=== PATIENT | female | born 1940 | race Caucasian/White ===

== ENCOUNTER 2016-07-14 17:20 | Emergency (ER) | payer MEDICARE, MEDICAID ==
[~2016-07-14] VITALS: Ht 149.9 cm; Wt 77.3 kg
[~2016-07-14 17:20] MED LIST: ARMO250T4 PO; CALC-762 PO; CARV6.252 PO; CHOL10008 PO; DOCU250C2 PO; FLUO40CA PO; FURO40TA4 PO; INSU100I SUBQ; INSU100V7 SUBQ; LOTE5DRO3 LEFT_EYE; NITR50CA4 PO; OMEP20CA11 PO; OXYB10TA PO; PRAV40TA PO; RAMI2.5C26 PO; VENL150C PO; WARF5TAB7 PO; ZYL100 PO
[2016-07-14 17:25] VITALS: BP 109/71; PULSE 83; RESP 16; O2SAT 88
[2016-07-14 17:57] LABS: BASOPHILS % (AUTO) 0.1 % (0-3); EOSINOPHILS % (AUTO) 1.6 % (0-5); MONOCYTES % (AUTO) 5.6 % (4-12); Mean Corpuscular Hemoglobin 30.8 pg (27.0-35.0); Mean Corpuscular Volume 92.3 fL (81-100); NEUTROPHILS % (AUTO) 79.6 % (40-74); Platelet Count 181 bil/L (150-400)
[2016-07-14 18:10] LABS: Magnesium 1.6 mg/dL (1.6-2.6)
--- NOTE | 2016-07-14 18:12 | ED.REPORT ---
HPI-Abd Pain F 40 and Over Date of Service Jul 14, 2016 ED Provider: Thompson,Ed MD History of Present Illness: 75-year-old female here for abdominal pain. She has had abdominal pain intermittently for 3 years. It was worse today. An episode of diarrhea while here. He was extremely smelly. He has been nauseous as well. No vomiting. She states she has a UTI she can feel it, otherwise was not specific about that. No fever. No recent antibiotics. takes daily stool softeners. No hx bowel issues per pt but it was found she was admitted for similar symptoms 02/2015. Nursing Notes Stated Complaint: ABDOMINAL PAIN Chief Complaint: Female Abdominal Pain Nursing Notes Reviewed: Yes Allergies: Coded Allergies: Penicillins (Verified Allergy, Unknown, 02/08/15) Sulfa (Sulfonamide Antibiotics) (Verified Allergy, Unknown, 02/08/15) TAPE (Verified Allergy, Unknown, Fragile skin, 02/08/15) azithromycin (Verified Allergy, Unknown, 02/08/15) meperidine (Verified Allergy, Unknown, 02/08/15) meperidine HCl (Verified Allergy, Unknown, 02/08/15) Scheduled Allopurinol (Allopurinol) 100 Mg Tablet 100 MG PO QAM Armodafinil (Nuvigil) 250 Mg Tablet 250 MG PO DAILY Calcium Carbonate/Vitamin D3 (Calcium 1,000 + D3 Caplet) 1 Each Tablet 1 EACH PO QAM Carvedilol (Carvedilol) 6.25 Mg Tablet 6.25 MG PO BID Cholecalciferol (Vitamin D3) (Vitamin D3) 1,000 Unit Tab.chew 1,000 UNIT PO QAM Ciprofloxacin (Cipro) 500 Mg Tablet 500 MG PO BID Docusate Sodium (Docusate Sodium) 250 Mg Capsule 250 MG PO HS Fluoxetine (Fluoxetine) 40 Mg Capsule 40 MG PO DAILY Furosemide (Furosemide) 40 Mg Tablet 10 MG PO QAM Insulin Aspart (NovoLOG U-100 Pen) 100 Unit/Ml Insuln.pen SUBQ TIDAC use per sliding scale Insulin Glargine (Lantus U100 Insulin Vial) 100 Unit/Ml Vial 36 UNIT SUBQ HS Loteprednol Etabonate (Lotemax) 5 Ml Drops.susp 1 DROP LEFT_EYE TID Metronidazole (Metronidazole) 500 Mg Tablet 500 MG PO TID Nitrofurantoin Macrocrystal (Macrodantin) 50 Mg Capsule 50 MG PO HS Omeprazole (Omeprazole) 20 Mg Capsule.dr 20 MG PO QAM Oxybutynin Chloride ER (Oxybutynin Chloride ER) 10 Mg Tab.er.24 10 MG PO DAILY Pravastatin (Pravastatin) 40 Mg Tablet 40 MG PO QAM Ramipril (Altace) 2.5 Mg Capsule 2.5 MG PO QAM Venlafaxine ER (Effexor XR) 150 Mg Cap.er.24h 150 MG PO QAM Warfarin Sodium (Warfarin Sodium) 5 Mg Tablet 5 MG PO Mon, Wed, Fri, Sat Warfarin Sodium (Warfarin Sodium) 5 Mg Tablet 7.5 MG PO Fri, Fri, General Time Seen by MD: 18:11 Chief Complaint Abdominal pain, Diarrhea mild, Nausea Hx Obtained From: Patient Arrived By: Walk-in Sudden in Onset?: No Progression since Onset: Constant Location: : Abdomen lower Severity: Current: Moderate Severity: Maximum: Severe Associated with: Reports: Diarrhea, Nausea Pertinent Negative: Pt denies other symptoms Past Medical History Past Medical History Notes: PCP: Dr. Rebolledo Past Medical History History of gastric AVM seen on EGD 02/02/13 History of ascending colonic sessile serrated polyp, benign pathology Diabetes mellitus, type 2, insulin using CAD status post stent placement Chronic gastritis CVA with residual left sided weakness Atrial fibrillation on coumadin Hypertension Narcolepsy [place] COPD Depression Anxiety Myocardial infarction Admitted in january with small and large bowel colitis, ecoli UTI. Past Surgical History Hiatal hernia repair Cholecystectomy Hysterectomy Possible appendectomy (patient unsure) Family History Noncontributory Smoking History Former Smoker Social History Alcohol Use: "Social" Drug Use: Denies drug use Other Social History: Lives alone, Local resident Ambulatory Status Independent Review of Systems Basic Review of Systems Eyes: Vision NL ENT: Hearing NL Neurologic: NL mental status, No weakness, No numbness Psychiatric: Normal thought content Constitutional: Denies: Fever Cardiovascular: Denies: Chest pain GI: Reports: Abdominal pain, Anorexia, Diarrhea, Nausea Female: Reports: Dysuria Musculoskeletal: Denies: Back pain Complete sys rev & neg: except as marked. Physical Exam Vital Signs Vital Signs (First) Date Time Temp Pulse Resp B/P Pulse Ox O2 Delivery O2 Flow Rate FiO2 07/14/16 17:25 36.6 83 16 109/71 88 Room Air 07/14/16 19:37 1 Head / Eyes: Atraumatic, Normocephalic, PERRL ENT: Mucous membranes moist, Conjunctiva normal Neck: Supple Skin: Warm, Dry, No cyanosis Neurologic: Alert, Oriented, Nonfocal Psychiatric: Mood/affect normal, Behavior normal, Normal thought content Respiratory / Chest: Atraumatic, Breath sounds = bilat Wheezing / Retractions: Positive: Wheezing mild Cardiovascular: Heart rate NL, Regular rhythm, Heart sounds NL Abdomen: Atraumatic, No guarding, No rebound, BS normoactive, No distention Tenderness/Guarding/Rebound: Positive: Tender LLQ... (Moderate), Tender RLQ... (Moderate) Skin: Atraumatic, Color NL, No rash Interpretation & Diagnostics Interpretation & Diagnostics: 1. Diffuse circumferential colonic wall thickening involving the distal transverse colon, splenic flexure, descending and sigmoid colon, consistent with colitis. Differential diagnoses include infectious etiology, inflammatory bowel disease, and ischemia. Recommend clinical correlation. 2. Multiple renal cysts bilaterally. 3. Stable left adrenal nodule. Dictated by: Martha Welch M.D. on 07/14/2016 at 19:40 Approved by: Martha Welch M.D. on 07/14/2016 at 19:45 Lab Results Interpretation Result Diagram: 07/14/16 1752 07/14/16 1752 Test 07/14/16 17:52 07/14/16 20:25 White Blood Count 13.5th/mm3 (3.8-10.1) Red Blood Count 4.52mil/mm3 (3.90-5.20) Hemoglobin 13.9g/dL (12.0-15.6) Hematocrit 41.7% (35.0-46.0) Mean Corpuscular Volume 92.3fL (81-100) Mean Corpuscular Hemoglobin 30.8pg (27.0-35.0) Mean Corpuscular Hemoglobin Concent 33.3% (32.0-37.0) Red Cell Distribution Width 13.1% (12.3-15.4) Platelet Count 181bil/L (150-400) Neutrophils (%) (Auto) 79.6% (40-74) Lymphocytes (%) (Auto) 12.6% (14-46) Monocytes (%) (Auto) 5.6% (4-12) Eosinophils (%) (Auto) 1.6% (0-5) Basophils (%) (Auto) 0.1% (0-3) Prothrombin Time 22.0sec (8.1-12.5) Prothromb Time International Ratio 2.03ratio Sodium Level 133mEq/L (134-144) Potassium Level 4.8mEq/L (3.5-5.2) Chloride Level 94mEq/L (97-108) Carbon Dioxide Level 25mmol/L (18-29) Blood Urea Nitrogen 21mg/dL (8-27) Creatinine 1.03mg/dL (0.57-1.00) Estimat Glomerular Filtration Rate 75mL/min (>59) Glucose Level 217mg/dL (60-99) Calcium Level 8.9mg/dL (8.5-10.1) Magnesium Level 1.6mg/dL (1.6-2.6) Total Bilirubin 0.4mg/dL (0.0-1.2) Aspartate Amino Transf (AST/SGOT) 42U/L (0-50) Alanine Aminotransferase (ALT/SGPT) 28U/L (0-32) Alkaline Phosphatase 172U/L (25-165) Total Protein 6.6g/dL (6.4-8.4) Albumin 3.9g/dL (3.4-5.0) Lipase 39U/L (13-60) Hold [place] Top Tube Received (Received) Urine Color Yellow (YELLOW) Urine Appearance Hazy (CLEAR,HAZY) Urine pH 6.0 (5.0-8.0) Urine Specific [place] 1.010 (1.003-1.035) Urine Protein Negativemg/dL (NEG,TRACE) Urine Glucose (UA) Negativemg/dL (NEGATIVE) Urine Ketones Negativemg/dL (NEGATIVE) Urine Occult Blood Negative (NEGATIVE) Urine Nitrite Positive (NEGATIVE) Urine Bilirubin Negative (NEGATIVE) Urine Urobilinogen Normalmg/dL (NORMAL) Urine Leukocyte Esterase Negative (NEGATIVE) Urine RBC 0-2/hpf (0-2) Urine WBC 0-5/hpf (0-5) Urine Epithelial Cells Occasional/hpf (NONE-MOD) Urine Crystals Amorphous urates (NONE Urine Bacteria Many/hpf (NONE-FEW) Urine Hyaline Casts None/lpf (NONE) Urine Granular Casts None seen (NONE SEEN) Urine Waxy Casts None seen (NONE SEEN) Urine Red Blood Cell Casts None seen (NONE SEEN) Urine White Blood Cell Casts None seen (NONE SEEN) Urine Mucus None seen (None Seen) Urine Trichomonas None seen (NONE SEEN) Urine Yeast None (NONE SEEN) Urinalysis Comment None Urine Culture Reflexed Indicated Re-Eval/Medical Decision Med Decision/Clinical Course Positive nitrates on urine, colitis founds on CAT scan. We will treat with metronidazole and Cipro for colitis and UTI follow-up in 1-[address] rebolledo. INR within normal limits, no adjustments on Coumadin needed. She will return if worse. Case ran by Dr. Pham agrees with discharge Source of Hx: Old records Counseled Regarding: Diagnosis, Lab results, Need for follow-up, When/why to return to ED Discharge & Departure Primary Impression: Urinary tract infection Urinary tract infection type: acute cystitis Hematuria presence: without hematuria Qualified Code: N30.00 - Acute cystitis without hematuria Additional Impression: Colitis, acute Disposition: Home Discharge Condition All VS Reviewed: Yes Condition: Stable Patient Instructions: Microscopic Colitis (ED), Urinary Tract Infection in Women (DC) Additional Instructions: Take ciprofloxacin and metronidazole for colitis and UTI. Follow-up with your doctor in 1-2 days. Return to emergency room if fevers, worsening pain, vomiting or worsening condition at all. Follow up if dizziness and lightheadedness is severe or you have any more falls. Drink lots of water and rest. You have stool cultures pending that will likely be back in 1-2 days, reviewed these with your doctor at your next appointment. You need to recheck your INR in the next few days as well your antibiotics interact with your Coumadin. You can do this with her PCP Referrals: Jorge A Rebolledo MD (PCP) EDSupervising Provider for APC: Faisal Pham MD copies to: Jorge A Rebolledo MD; Faisal Pham MD, Linnea K ARNP Jul 14, 2016 18:12
[2016-07-14] MEDS ORDERED: 0.9% Sodium Chloride 1,000 ML IV ONE (18:22)
[2016-07-14] MEDS ORDERED: Ondansetron 2 mg/mL 2 mL Inj IVPUSH ONE (18:25)
--- NOTE | 2016-07-14 18:55 | DRSVH ---
PROCEDURE: X-RAY CHEST ONE VIEW ([id number]) INDICATIONS: wheeze TECHNIQUE: One view of the chest was acquired. COMPARISON: [facility], CR, CHEST 1VW (PORTABLE), 12/20/2012, 1:21. [facility] al, CR, CHEST 2VW, 01/25/2013, 22:13. [facility], CR, CHEST 1VW (PORTABLE), 04/10/2013, 1 6:38. [facility], , XR CHEST 1VW (PORTABLE), 02/08/2015, 15:25. FINDINGS: Surgical changes and devices: There is a cardiac defibrillator in expected position. Lungs and pleura: Stable nodular densities in the right upper lung zone since 12/12/12. No pleural ef fusions or pneumothorax. Mediastinum: Mediastinal contours appear normal. Heart size is normal. Bones and chest wall: No suspicious bony lesions. Overlying soft tissues appear unremarkable. IMPRESSION: No acute cardiopulmonary disease. Dictated by: Martha Welch M.D. on 07/14/2016 at 18:53 Approved by: Martha Welch M.D. on 07/14/2016 at 18:55
[2016-07-14 19:37] VITALS: BP 91/48; PULSE 86; RESP 16; O2SAT 96
--- NOTE | 2016-07-14 19:40 | DRSVH ---
PROCEDURE: CT BRAIN WITHOUT CONTRAST ([id number]) INDICATIONS: head trauma TECHNIQUE: Noncontrast 4.5 mm thick angled axial sections acquired from the foramen magnum to the vertex, with c oronal reformats. COMPARISON: None. FINDINGS: Image quality: Excellent. CSF spaces: Basal cisterns are patent. No extra-axial fluid collections. The ventricles are symmet rivera in size and shape. Brain: No intracranial bleeds or masses. There is moderate cerebral volume loss for age, with resul tant ventricular and sulcal prominence. There are severe periventricular and deep white matter chron ic small vessel ischemic changes. There is intracranial internal carotid artery atherosclerosis. Skull and face: Calvarium and visualized facial bones appear intact, without suspicious lesions. Sinuses: Visualized sinuses and mastoids are clear. IMPRESSION: 1. No acute intracranial abnormalities. 2. Cerebral volume loss and chronic microvascular ischemic changes. Dictated by: Martha Welch M.D. on 07/14/2016 at 19:38 Approved by: Martha Welch M.D. on 07/14/2016 at 19:39
--- NOTE | 2016-07-14 19:46 | DRSVH ---
PROCEDURE: CT ABDOMEN AND PELVIS WITH CONTRAST ([id number]) INDICATIONS: lower abd pain TECHNIQUE: After the administration of intravenous contrast, 5 mm thick sections acquired from the diaphragm to the symphysis. 5 mm coronal and sagittal reformats were acquired. For radiation dose reduction, the following was used: automated exposure control, adjustment of mA and/or kV according to patient gio crum. COMPARISON: [facility], CT, CT ABD PELVIS W CON, 02/08/2015, 15:52. [facility], CT, CT ABD PELVIS W CON, 03/20/2015, 10:28. FINDINGS: Image quality: Excellent. ABDOMEN: Lung bases: Lung bases are clear. Heart size is normal. Note is made of left breast prosthesis. Solid organs: Liver and spleen are normal in size and enhancement. Gallbladder is surgically absent . Biliary system is non dilated. Pancreas enhances normally. There is a 1.9 cm left adrenal nodule unchanged compared to 03/20/2015. Kidneys demonstrate normal size and enhancement, without hydroneph rosis. Multiple renal cysts bilaterally are again noted. Peritoneum and bowel: There is diffuse circumferential colonic wall thickening involving the distal transverse colon, splenic flexure, descending and sigmoid colon consistent with colitis. Small bowel loops demonstrate normal wall thickness and caliber. There is a trace amount of free fluid. No free air. Nodes and vessels: No retroperitoneal or mesenteric adenopathy by size criteria. Aorta and inferior vena cava are normal in size. Mild atherosclerosis. Miscellaneous: No ventral hernias. PELVIS: Genitourinary: Bladder wall thickness is normal. Miscellaneous: No inguinal hernias or adenopathy. Bones: No suspicious bony lesions. No vertebral body compression fractures. Mild degenerative gallego ges noted in lumbar spine. IMPRESSION: 1. Diffuse circumferential colonic wall thickening involving the distal transverse colon, splenic fle xure, descending and sigmoid colon, consistent with colitis. Differential diagnoses include infectiou s etiology, inflammatory bowel disease, and ischemia. Recommend clinical correlation. 2. Multiple renal cysts bilaterally. 3. Stable left adrenal nodule. Dictated by: Martha Welch M.D. on 07/14/2016 at 19:40 Approved by: Martha Welch M.D. on 07/14/2016 at 19:45
[2016-07-14 20:29] LABS: INR 2.03 ratio
[2016-07-14 20:44] LABS: APPEARANCE,URINE HAZY (CLEAR,HAZY); COLOR,URINE YELLOW (YELLOW); OCCULT BLOOD,URINE NEGATIVE (NEGATIVE); UROBILINOGEN,URINE NORMAL (NORMAL)
[2016-07-14] MEDS ORDERED: METR500T19 PO (21:02)
[2016-07-14] MEDS ORDERED: CIPR-231 PO (21:03)
[2016-07-14 21:39] VITALS: BP 105/54; PULSE 86; RESP 16; O2SAT 96
[2016-07-16] MEDS ORDERED: DOXY100C43 PO (10:10)
== END 2016-07-14 21:50 | disposition home or self-care (01) ==
LOC: SED 17:20
DX: N30.00 Acute cystitis without hematuria (principal); B96.20 Unspecified Escherichia coli [E. coli] as the cause of diseases classified elsewhere; K52.9 Noninfective gastroenteritis and colitis, unspecified; I11.9 Hypertensive heart disease without heart failure; E11.59 Type 2 diabetes mellitus with other circulatory complications; I25.10 Atherosclerotic heart disease of native coronary artery without angina pectoris; I25.2 Old myocardial infarction; I69.354 Hemiplegia and hemiparesis following cerebral infarction affecting left non-dominant side; Z86.79 Personal history of other diseases of the circulatory system; Z79.4 Long term (current) use of insulin; Z79.01 Long term (current) use of anticoagulants; Z87.891 Personal history of nicotine dependence; Z88.0 Allergy status to penicillin; Z88.1 Allergy status to other antibiotic agents; Z88.2 Allergy status to sulfonamides; Z88.5 Allergy status to narcotic agent; Z88.8 Allergy status to other drugs, medicaments and biological substances
CPT/HCPCS: 70450; 71010; 74177; 80053; 81000; 83690; 83735; 85025; 85610; 87086; 87088; 87186; 87507; 96361; 96374; 99285; J2405; J7030; Q9967

== ENCOUNTER 2016-09-01 13:05 | Inpatient (IN) | payer MEDICARE, MEDICAID ==
[~2016-09-01] VITALS: Ht 149.9 cm; Wt 81.8 kg
[~2016-09-01 13:05] MED LIST changes: +CIPR-231 PO; +DOXY100C43 PO; +METR500T19 PO
[2016-09-01 13:06] VITALS: BP 95/48; PULSE 88; RESP 17; O2SAT 98
--- NOTE | 2016-09-01 13:21 | ED.REPORT ---
HPI-Extremity Problem Lower Date of Service Sep 01, 2016 ED Provider: Thompson,Ed MD History of Present Illness: started 2 days ago, right leg swelling and redness. ball is primary care. , no injury to right leg. nausea, no vomiting diabetic, lives by self at [facility]. Nursing Notes Stated Complaint: RT LEG SWELLING Chief Complaint: Extremity Trauma Nursing Notes Reviewed: Yes Allergies: Coded Allergies: Penicillins (Verified Allergy, Unknown, 09/01/16) Sulfa (Sulfonamide Antibiotics) (Verified Allergy, Unknown, 09/01/16) TAPE (Verified Allergy, Unknown, Fragile skin, 09/01/16) azithromycin (Verified Allergy, Unknown, 09/01/16) meperidine (Verified Allergy, Unknown, 09/01/16) meperidine HCl (Verified Allergy, Unknown, 09/01/16) Scheduled Allopurinol (Allopurinol) 100 Mg Tablet 100 MG PO QAM Armodafinil (Nuvigil) 250 Mg Tablet 250 MG PO DAILY Carvedilol (Carvedilol) 6.25 Mg Tablet 6.25 MG PO BID Docusate Sodium (Docusate Sodium) 250 Mg Capsule 250 MG PO HS Fluoxetine (Fluoxetine) 40 Mg Capsule 40 MG PO DAILY Furosemide (Furosemide) 40 Mg Tablet 10 MG PO QAM Insulin Aspart (NovoLOG U-100 Pen) 100 Unit/Ml Insuln.pen SUBQ TIDAC use per sliding scale Insulin Glargine (Lantus U100 Insulin Vial) 100 Unit/Ml Vial 36 UNIT SUBQ HS Loteprednol Etabonate (Lotemax) 5 Ml Drops.susp 1 DROP LEFT_EYE TID Nitrofurantoin Macrocrystal (Macrodantin) 50 Mg Capsule 50 MG PO HS Omeprazole (Omeprazole) 20 Mg Capsule.dr 20 MG PO QAM Oxybutynin Chloride ER (Oxybutynin Chloride ER) 10 Mg Tab.er.24 10 MG PO DAILY Pravastatin (Pravastatin) 40 Mg Tablet 40 MG PO QAM Venlafaxine ER (Effexor XR) 150 Mg Cap.er.24h 150 MG PO QAM Warfarin Sodium (Warfarin Sodium) 5 Mg Tablet 5 MG PO Mon, Wed, Fri, Sat Warfarin Sodium (Warfarin Sodium) 5 Mg Tablet 7.5 MG PO Sun, Tue, Th Scheduled PRN Doxycycline Monohyd (Doxycycline Monohyd) 100 Mg Capsule 100 MG PO BID PRN PRN UTI Miscellaneous Medications Varenicline Tartrate (Chantix) 1 Mg Tablet 1 MG PO General Time Seen by MD: 13:20 Chief Complaint Other (right leg erthyma and swelling) Hx Obtained From: Patient Onset Occurred: 2 days ago Symptom Duration: Since onset Past Medical History Past Medical History Notes: PCP: Dr. Cordero Past Medical History History of gastric AVM seen on EGD 02/02/13 History of ascending colonic sessile serrated polyp, benign pathology Diabetes mellitus, type 2, insulin using CAD status post stent placement Chronic gastritis CVA with residual left sided weakness Atrial fibrillation on coumadin Hypertension Narcolepsy [place] COPD Depression Anxiety Myocardial infarction Admitted in january with small and large bowel colitis, ecoli UTI. Past Surgical History Hiatal hernia repair Cholecystectomy Hysterectomy Possible appendectomy (patient unsure) Family History Noncontributory Smoking History Former Smoker Social History Alcohol Use: "Social" Drug Use: Denies drug use Other Social History: Lives alone, Local resident Occupation lives at [facility] 09/01/2016 Ambulatory Status Independent Review of Systems Basic Review of Systems Eyes: Vision NL, No discharge Cardiovascular: No chest pain, No dyspnea on exertion, No orthopnea, No parox noct dyspnea, No palpitations Allergy / Immune: No allergy Physical Exam Initial Vital Signs Vital Signs (First) Date Time Temp Pulse Resp B/P Pulse Ox O2 Delivery O2 Flow Rate FiO2 09/01/16 13:06 36.8 88 17 95/48 98 Room Air 09/01/16 14:40 2 Initial VS: Reviewed, Vital signs normal General/Constitutional: Well-developed, Well-nourished Head / Eyes: Atraumatic, Normocephalic, PERRL ENT: Mucous membranes moist, Conjunctiva normal, No scleral icterus Neck: Supple, Non-tender, Full range of motion Respiratory: Breath sounds normal, Clear to auscultation, No respiratory distress Cardiovascular: Regular rate & rhythm, Heart sounds normal, Intact distal pulses Abdomen / GI: Soft, Non-tender, No guarding, No rebound, No distention Back: No CVA tenderness Lymphatic: No lymphadenopathy Upper Extremities: Vascular intact, Neuro intact, No swelling, No tenderness Skin: Warm, Dry, No cyanosis Neurologic: Alert, Oriented, Nonfocal Psychiatric: Mood/affect normal, Behavior normal, Normal thought content right leg with erthyma from knee to ankle , completely encirles ankle area. General/Constitutional: Awake, Alert, No acute distress, Well appearing, Well developed, Well hydrated Respiratory / Chest: Atraumatic, Breath sounds NL, Breath sounds = bilat, No respiratory distress, No rales, No rhonchi Cardiovascular: Heart rate NL, Regular rhythm, Heart sounds NL, No gallop Interpretation & Diagnostics Interpretation & Diagnostics: US is negative for any DVT Lab Results Interpretation Result Diagram: 09/01/16 1320 09/01/16 1320 Test 09/01/16 13:20 09/01/16 14:27 White Blood Count 20.8th/mm3 (3.8-10.1) Red Blood Count 4.26mil/mm3 (3.90-5.20) Hemoglobin 13.0g/dL (12.0-15.6) Hematocrit 39.8% (35.0-46.0) Mean Corpuscular Volume 93.4fL (81-100) Mean Corpuscular Hemoglobin 30.5pg (27.0-35.0) Mean Corpuscular Hemoglobin Concent 32.7% (32.0-37.0) Red Cell Distribution Width 13.4% (12.3-15.4) Platelet Count 168bil/L (150-400) Neutrophils (%) (Auto) 85.2% (40-74) Lymphocytes (%) (Auto) 6.8% (14-46) Monocytes (%) (Auto) 7.5% (4-12) Eosinophils (%) (Auto) 0.1% (0-5) Basophils (%) (Auto) 0.1% (0-3) Hold Purple Top Tube Received (Received) Prothrombin Time 14.7sec (8.1-12.5) Prothromb Time International Ratio 1.37ratio Hold Blue Top Tube Received (Received) Sodium Level 136mEq/L (134-144) Potassium Level 4.1mEq/L (3.5-5.2) Chloride Level 95mEq/L (97-108) Carbon Dioxide Level 27mmol/L (18-29) Blood Urea Nitrogen 19mg/dL (8-27) Creatinine 0.96mg/dL (0.57-1.00) Estimat Glomerular Filtration Rate 81mL/min (>59) Glucose Level 196mg/dL (60-99) Lactic Acid Level 1.4mmol/L (0.4-2.0) Calcium Level 9.4mg/dL (8.5-10.1) Total Bilirubin 0.6mg/dL (0.0-1.2) Aspartate Amino Transf (AST/SGOT) 20U/L (0-50) Alanine Aminotransferase (ALT/SGPT) 14U/L (0-32) Alkaline Phosphatase 97U/L (25-165) Total Protein 7.4g/dL (6.4-8.4) Albumin 3.8g/dL (3.4-5.0) Procalcitonin 0.23ng/mL (0.00-0.08) Hold [place] Top Tube Received (Received) Hold [place] Top Tube Received (Received) Urine Color Yellow (YELLOW) Urine Appearance Clear (CLEAR,HAZY) Urine pH 5.5 (5.0-8.0) Urine Specific [place] 1.025 (1.003-1.035) Urine Protein Negativemg/dL (NEG,TRACE) Urine Glucose (UA) Negativemg/dL (NEGATIVE) Urine Ketones Negativemg/dL (NEGATIVE) Urine Occult Blood Negative (NEGATIVE) Urine Nitrite Positive (NEGATIVE) Urine Bilirubin Negative (NEGATIVE) Urine Urobilinogen Normalmg/dL (NORMAL) Urine Leukocyte Esterase Negative (NEGATIVE) Urine RBC 0-2/hpf (0-2) Urine WBC 0-5/hpf (0-5) Urine Epithelial Cells None/hpf (NONE-MOD) Urine Crystals None seen (NONE SEEN) Urine Bacteria Many/hpf (NONE-FEW) Urine Hyaline Casts None/lpf (NONE) Urine Granular Casts None seen (NONE SEEN) Urine Waxy Casts None seen (NONE SEEN) Urine Red Blood Cell Casts None seen (NONE SEEN) Urine White Blood Cell Casts None seen (NONE SEEN) Urine Mucus None seen (None Seen) Urine Trichomonas None seen (NONE SEEN) Urine Yeast None (NONE SEEN) Urinalysis Comment None Urine Culture Reflexed Indicated Lab Results Interpretation: urine shows infection X-Ray Interpretation Xray Interpretation: x-ray is negative Re-Eval/Medical Decision Med Decision/Clinical Course 76 year old female presnet for evualation of redness and swelling of right leg of 2 days duration. Both x-ray and ultrasound are negaitve. work up also indicates a bladder infection. clinical picture is consistent with cellulitis. no sign of compartment syndrome or clot formation Discharge & Departure Impression: Primary Impression: Cellulitis Site of cellulitis of extremity: lower extremity Laterality: right Additional Impression: Urinary tract infection Encounter type: initial encounter Disposition: ADMITTED TO HOSPITAL Referrals: Jorge A Cordero MD (PCP) EDSupervising Provider for APC: Jewel Perez MD copies to: Jorge A Cordero MD, Sue ARNP Sep 01, 2016 13:21
[2016-09-01] MEDS ORDERED: cefTRIAXone Inj 2,000 MG in Dextrose 5% Minibag Plus 50 ML IV ONE (13:35)
[2016-09-01] MEDS ORDERED: Ondansetron 2 mg/mL 2 mL Inj IVPUSH ONE (14:25)
[2016-09-01] MEDS ORDERED: HYDROmorphone 0.5 mg/0.5 mL iSecure Syringe IVPUSH ONE (14:25)
[2016-09-01 14:27] LABS: BASOPHILS % (AUTO) 0.1 % (0-3); EOSINOPHILS % (AUTO) 0.1 % (0-5); MONOCYTES % (AUTO) 7.5 % (4-12); Mean Corpuscular Hemoglobin 30.5 pg (27.0-35.0); Mean Corpuscular Volume 93.4 fL (81-100); NEUTROPHILS % (AUTO) 85.2 % (40-74); Platelet Count 168 bil/L (150-400)
[2016-09-01 14:36] LABS: INR 1.37 ratio
[2016-09-01 14:40] VITALS: BP 104/47; PULSE 84; RESP 17; O2SAT 95
[2016-09-01 14:43] LABS: APPEARANCE,URINE CLEAR (CLEAR,HAZY); COLOR,URINE YELLOW (YELLOW); OCCULT BLOOD,URINE NEGATIVE (NEGATIVE); PH,URINE 5.5 (5.0-8.0)
[2016-09-01 14:44] LABS: UROBILINOGEN,URINE NORMAL (NORMAL)
[2016-09-01] MEDS ORDERED: 0.9% Sodium Chloride 1,000 ML IV SCH (15:30)
[2016-09-01] MEDS ORDERED: Ondansetron 2 mg/mL 2 mL Inj IVPUSH PRN (15:30)
[2016-09-01 16:30] VITALS: BP 108/62; PULSE 85; RESP 20; O2SAT 97
--- NOTE | 2016-09-01 16:30 | NUR ---
Arrival to room 248-2 Pt brought on stretcher from ER. 3 person assist into bed via draw sheet. c/o pain RLE c/o hunger - menu given for ordering.
[2016-09-01] MEDS: Vancomycin Dose per Pharmacist XX SCH (16:45)
[2016-09-01 16:53] VITALS: PULSE 85
[2016-09-01] MEDS ORDERED: Glucose 40% Oral Gel 15 Gm Tube PO PRN (16:55)
--- NOTE | 2016-09-01 16:55 | PCM.HPMED ---
Subjective Date of Service Sep 01, 2016 Primary Provider: Admitting Physician: Primary Care Physician: Jorge A Cordero MD Attending Physician: Chief Complaint: Right lower extremity pain and swelling History of Present Illness: 76-year-old female with multiple commodities p/w 2days of leg swelling and pain. Patient with usual state of health until 2 days ago . She started noticing itchiness, mild swelling on her right lower leg, which got progressively worsened for the past 2 days, developed pain, redness, decided to come to hospital. Patient denied fever or chills at home, denied any neck trauma recently, patient also had nausea w/o vomiting for past 2days, decreased po intake. ROS: has baseline urge incontinence, no dysuria, back pain, diarrhea, constipation, no cough, sputum, sob, chest pain, palpitation. in ED, VS hypotenstive to 80-90s, not tachycardic or tachypneic, afebrile, patient was mentating okay, labs showed bacteriuria, Nitrite+, wbc20s, lactate1.4 procal0.23, CFX 2g for possible UTI, cellulitis Review of Systems: Pertinent positives as noted in history of present illness. All other systems were reviewed and are negative Allergies Coded Allergies: Penicillins (Verified Allergy, Unknown, 09/01/16) Sulfa (Sulfonamide Antibiotics) (Verified Allergy, Unknown, 09/01/16) TAPE (Verified Allergy, Unknown, Fragile skin, 09/01/16) azithromycin (Verified Allergy, Unknown, 09/01/16) meperidine (Verified Allergy, Unknown, 09/01/16) meperidine HCl (Verified Allergy, Unknown, 09/01/16) Home Medications From most recent PCP note 08/29 Albuterol sulfate HFA 90 mcg/actuation aerosol inhaler 90 mcg inhale 1 to 2 puff by inhalation route every 4 - 6 hours as needed for breathing. ALLOPURINOL 100 MG TABLET 100 mg take 1 tablet by mouth every morning Have not seen patient since 2012, all future refills to Dr.Bal Mccarthy 2.5 mg capsule 2.5 mg TAKE ONE CAPSULE BY MOUTH ONCE DAILY FOR HIGH BLOOD PRESSURE betamethasone dipropionate 0.05 % topical cream 0.05 % apply by topical route 2 times every day a thin layer to the affected area(s) Calcium 500 500 mg calcium (1,250 mg) tablet 500 mg calcium (1,250 mg) 1000mg daily COREG 6.25MG TABLET - 6.25 mg TAKE ONE TABLET BY MOUTH TWICE A DAY WITH FOOD CHANTIX TAYLER 1MG TABLET 1 mg TAKE ONE TABLET BY MOUTH TWICE A DAY WITH GLASS OF WATER AFTER MEALS clotrimazole 1 % topical cream 1 % apply by topical route 2 times every day to the affected and surrounding areas of skin in the morning and evening Durable Medical Equipment 4 wheel walker with seat and brakes. VENLAFAXINE CAP 150MG ER CAPSULE 150 mg TAKE ONE CAPSULE BY MOUTH ONCE DAILY FOR MOOD fluoxetine 20 mg tablet 20 mg take 2 tablet by oral route every day in the morning for mood furosemide 40 mg tablet 40 mg take 0.25 tablet (10MG) by oral route every other day Lantus 100 unit/mL subcutaneous solution 100 unit/mL inject 45 Units by subcutaneous route every bedtime as per insulin protocol Lotemax 0.5 % eye drops,suspension 0.5 % instill 1 drop by ophthalmic route every day into affected eye(s) Lotrisone 1 %-0.05 % topical cream 1 %-0.05 % apply by topical route 2 times every day for 2 weeks to the affected and surrounding areas of skin in the morning and evening Insurance does not cover. Metamucil Fiber Singles 3.4 gram oral powder packet 3.4 gram unsure of dosage Monurol 3 gram oral packet 3 gram take 1 sachet by oral route dissolved in 3 to 4 ounces (1/2 cup) of water as a single dose. (save the remainder) Neurontin 300 mg capsule 300 mg take 1 capsule by mouth at bedtime Novolog 100 unit/mL subcutaneous solution 100 unit/mL sliding scale with each meal. Nuvigil 150 mg tablet 150 mg take 1 tablet by oral route every day in the morning omeprazole 20 mg capsule,delayed release 20 mg take 1 capsule by oral route every day before a meal for acid reflux. Refills authorized by Dami Renteria, SalomonD under [place] Board of Pharmacy approved protocol on behalf of provider. oxybutynin chloride ER 10 mg tablet,extended release 24 hr 10 mg TAKE ONE TABLET BY MOUTH ONCE DAILY FOR BLADDER URGENCY Oxygen 2 liter Nasal 2 liter use 2 L by NC at night. PRAVASTATIN TAB 40MG TABLET 40 mg TAKE ONE TABLET BY MOUTH ONCE DAILY Senna Lax 8.6 mg tablet 8.6 mg take 1 tablet by oral route every day as needed for constipation triamcinolone acetonide 0.1 % topical cream 0.1 % apply by topical route 2 times every day a thin layer to the affected area(s) Truetest Test Strips test blood sugars 3 times every day for diabetes. Vitamin D3 1,000 unit capsule 1,000 unit take 1 Tablet by Oral route every day warfarin 5 mg tablet 5 mg take 1.5 tablet [7.5 mg] by oral route every day except 1 tablet [5 mg] on Mon , Fri or as directed by coumadin clinic [facility] CAD, residual deficit CVA HTN (hypertension) Atrial fibrillation Gout Cardiac pacemaker History of recurrent UTIs, Mixed incontinence, Urinary frequency, Nocturia, Urgency of urination Diabetes mellitus Smoker COPD (chronic obstructive pulmonary disease) Ischemic cardiomyopathy CAD (coronary artery disease) Narcolepsy DM (diabetes mellitus), type 2, uncontrolled w/apoorva Depression Hyperlipidemia Benign essential hypertension Impaired mobility and activities of daily living Family History No history of CAD Social History Hx Alcohol Use: No Hx Substance Use: No Hx Tobacco Use: Yes (60 year history. Quit one month ago) Smoking Status: Former Smoker Exam Vital Signs Vital Sign - Last Date Time Temp Pulse Resp B/P Pulse Ox O2 Delivery O2 Flow Rate FiO2 09/01/16 14:40 84 17 104/47 95 Nasal Cannula 2 09/01/16 13:06 36.8 Exam NAD, comfortably laying down on the bed no JVD, MMM, no LAD RRR, nl s1, s2 no mrg CTAB, no w,c S,ND,NT,normoactive BS+ RLE erythema/tenderness/tenderness, LLE trace edema Lab and Diagnostics Result Diagram: 09/01/16 1320 09/01/16 1320 Assessment & Plan acute, active, RLE swelling, edema, erythema, tenderness, POA, consistent to cellulitis, non- purulent, likely strep infection, no clear margination, likley insulted from itching baseline skin condition, minor scratch. -would cover MRSA, Beta strep with Vanc, CFX 2g, would deescalated based on clinical exam -awaits MRSA swab, BCX -trends fever curve, wbc, procalcitonin -gentle bolus 250-500cc to target MAP>65 pyuria, bacteriuria, POA, this is chronic findings, patient has hx of recurrent UTI, Mixed incontinence, Urinary frequency, Nocturia, Urgency. Pt was recently seen by , recommended not treating with abx, Urge is chronic problem from incontinence. -supportive tx, enough hydration, -awaits final cultures chronic, stable, CAD, Ischemic cardiomyopathy, s/p Cardiac pacemaker -clinically euvolemic, pt only takes lasix as needed as it worsens her incontinence, would hold off given acute infection. CVA,pt cannot recall residual deficit, although patient has multiple falls recently due losing balance despite using walker, PT ordered HTN (hypertension), hold off lasx, wound continue BB given CAD, coreg 6.25 decrease to 3.125 bid tomorrow, see if patient can tolerate Atrial fibrillation, continue coumadin per pharmacy Gout, continue allopurinol Diabetes mellitus, [id number] on adm, continue [id number] from 44(home), lispro SS COPD (chronic obstructive pulmonary disease), qvar bid, alb prn Narcolepsy Depression, this was addressed by PCP recently, continue follow up in the clinic Hyperlipidemia, continue statin former smoker, quit smoking 1mo ago, encouraged to continue dispo:Patient will be admitted with inpatient status with expectation of inpatient therapy for more than 2 midnights diet:cardiac dvt ppx:HSQ Full code Time spent 65 minutes Nikki Gonzalez MD Sep 01, 2016 15:39
[2016-09-01] MEDS ORDERED: Albuterol 2.5 mg/3 mL Inhalation Solution NEB PRN (17:05)
[2016-09-01] MEDS ORDERED: Vancomycin Inj 1,750 MG in 0.9% Sodium Chloride 500 ML IV ONE (17:05)
[2016-09-01] MEDS ORDERED: VARE1TAB22 PO (17:47)
[2016-09-01] MEDS: Insulin LISPRO 300 Unit/3 mL Inj SUBQ SCH ×2 (18:06→22:00)
--- NOTE | 2016-09-01 18:23 | NUR ---
pain/swallow Pt c/o 02/02 pain right ankle, request made to for pain medication. Admit RN reports pt states she chokes occasionally on food at home. currently wears of no teeth Addendum: 09/01/16 at 1829 by GERMAN URIARTE RN new orders received.
[2016-09-01] MEDS: HYDROmorphone 1 mg/mL Inj IVPUSH PRN (18:48)
--- NOTE | 2016-09-01 19:20 | PCM.CONPHA ---
Subjective Right lower extremity pain and swelling Reason for Pharmacy Consult: Anticoagulation Management Assessment/Plan Assessment/Plan Warfarin Management by Pharmacy Indication: Afib Home Dose: Warfarin 5 mg daily INR Goal: 2-3 Duration: Unknown Wt: 81.82 kg Anticoagulation Trends (day) 1 RP 09/01 Date DFF INR 1.37 INR change Warf Dose 5 MG Assessment/Plan - Subtherapeutic INR on admit. Pt denies missed doses. -Will dose warfarin 5 mg tonight. May increase dose if level doesn't rebound. -Pharmacy to monitor INR/CBC/signs of bleeding while inpatient. Galen Berkowitz Dwaine Pharm.D. Marvel Aaron Sep 01, 2016 19:20
[2016-09-01 20:00] VITALS: PULSE 80
--- NOTE | 2016-09-01 20:25 | PCM.CONPHA ---
Subjective Right lower extremity pain and swelling Reason for Pharmacy Consult: Vancomycin Dosing Assessment/Plan Assessment/Plan Pharmacy Kinetic Dosing Vancomycin Indication: Rt leg cellulitis Goal vanc trough: 10-15 mcg/ml Pt wt: 81.82kg (IBW: 54.7kg ; AdjBW: 78.2kg) Other ABX: Rocephin SCr: 0.96 WBC: 20.3, afebrile Cultures: Blood pending; MRSA pending Assessment/Plan: - Loading dose of 1750 mg given. -Will schedule vancomycin to 1,000mg daily. -Will schedule trough level to be drawn on 09/04@1730 prior to 4th scheduled dose. Pharmacy appreciates consult and will continue to monitor. Thanks, Marvel Aaron, PharmD Marvel Aaron F Sep 01, 2016 20:25
[2016-09-01] MEDS: Triamcinolone 0.1% 30 Gm Cream TOPICAL SCH (20:43)
[2016-09-01] MEDS: Fluticasone 100 mCg Inhaler INHALATION SCH (20:43)
[2016-09-01] MEDS: Heparin 5,000 Unit/mL Inj SUBQ SCH (20:43)
[2016-09-01 22:22] VITALS: BP 109/70; PULSE 78; RESP 16; O2SAT 95
[2016-09-01] MEDS: Insulin GLARgine 100 Unit/mL Syringe SUBQ SCH (23:01)
[2016-09-02] VITALS (7 sets, daily range): BP systolic 99–127; BP diastolic 61–79; PULSE 72–87; RESP 16–20; O2SAT 90–98
--- NOTE | 2016-09-02 03:58 | NUR ---
/Ambulation Pt had some incontinence and dribbling, but was able to get into bathroom w/o much assistance using walker. Pt hasn't had any reports of increased pain, and has been able to rest well tonight despite pt reports of insomnia at baseline.
[2016-09-02] MEDS: HYDROmorphone 1 mg/mL Inj IVPUSH PRN ×4 (05:57→20:12)
--- NOTE | 2016-09-02 05:59 | DRSVH ---
PROCEDURE: US VEINOUS LEG DUPLEX UNILATERAL, RIGHT INDICATIONS: right leg swelling TECHNIQUE: Real-time imaging, as well as color and pulse Doppler interrogation, were performed of the lower extr emity deep veins from the inguinal ligament to the popliteal fossa. COMPARISON: None. FINDINGS: The deep veins are normally compressible, and free of intraluminal thrombus. Color and pu lse Doppler demonstrate normal phasic intraluminal flow. There is normal augmentation response to di stal compression maneuver. IMPRESSION: No evidence of deep venous thrombosis. Dictated by: Moises Barber M.D. on 09/01/2016 at 15:01 Approved by: Moises Barber M.D. on 09/01/2016 at 15:02
--- NOTE | 2016-09-02 05:59 | DRSVH ---
PROCEDURE: X-RAY RIGHT TIBIA/FIBULA, TWO VIEWS ([id number]) INDICATIONS: right leg swelling and erthyma TECHNIQUE: 2 views of the tibia and fibula were acquired. COMPARISON: None. FINDINGS: Bones: No fractures or dislocations. No suspicious bony lesions. Tibiotalar degenerative changes. P ossible small less than 5 mm loose bodies projecting posterior joint space of the right knee Soft tissues: No suspicious soft tissue calcifications or masses. IMPRESSION: No fracture. No focal osseous destruction. Degenerative changes as above. Dictated by: Moises Barber M.D. on 09/01/2016 at 14:05 Approved by: Moises Barber M.D. on 09/01/2016 at 14:08
[2016-09-02 06:05] LABS: BASOPHILS % (AUTO) 0.1 % (0-3); EOSINOPHILS % (AUTO) 1.5 % (0-5); Mean Corpuscular Hemoglobin 30.5 pg (27.0-35.0); Mean Corpuscular Volume 94.7 fL (81-100); NEUTROPHILS % (AUTO) 76.7 % (40-74); Platelet Count 125 bil/L (150-400)
[2016-09-02 06:30] LABS: Magnesium 1.7 mg/dL (1.6-2.6); Phosphorus 3.4 mg/dL (2.5-4.9)
[2016-09-02 06:48] LABS: INR 1.48 ratio
[2016-09-02] MEDS: Vancomycin Dose per Pharmacist XX SCH (08:30)
[2016-09-02] MEDS: Pantoprazole 20 mg ER24 Tablet PO SCH (08:41)
[2016-09-02] MEDS: Insulin LISPRO 300 Unit/3 mL Inj SUBQ SCH ×4 (08:43→22:00)
[2016-09-02] MEDS ORDERED: 0.9% Sodium Chloride 1,000 ML IV ONE (09:25)
[2016-09-02] MEDS: Venlafaxine XR 75 mg ER24 Capsule PO SCH (09:35)
[2016-09-02] MEDS: Fluticasone 100 mCg Inhaler INHALATION SCH ×2 (09:35→20:08)
[2016-09-02] MEDS: Heparin 5,000 Unit/mL Inj SUBQ SCH ×2 (09:36→20:09)
[2016-09-02] MEDS: cefTRIAXone Inj 2,000 MG in Dextrose 5% Minibag Plus 50 ML IV SCH (09:36)
[2016-09-02] MEDS: Polyethylene Glycol (PEG) 17 Gm Powder PO SCH (09:36)
[2016-09-02] MEDS: Triamcinolone 0.1% 30 Gm Cream TOPICAL SCH ×2 (09:37→20:08)
--- NOTE | 2016-09-02 11:30 | NUR ---
Evaluation completed. Please go to "Notes" then click on "Assessments and Notes" (bottom left corner of screen). Then select appropriate discipline tab on top of screen.
--- NOTE | 2016-09-02 14:00 | NUR ---
Pain/urinary output Pt c/o leg pain at 9-10/10 shortly after she was given Dilaudid. Pt then given APAP. Hospitalist notified. No new pain medications at this time. Hospitalist advised round the clock APAP. Will continue to monitor. Pt has had minimal urinary output this shift. Bladder scan shows 0mL. Will continue to monitor.
--- NOTE | 2016-09-02 15:33 | PCM.PNMED ---
Subjective Date of Service Sep 02, 2016 Subjective Patient was seen and examined at bedside today. Patient denies any chest pain, shortness of breath, nausea, vomiting, diarrhea. Patient does complain of right lower extreme pain secondary to cellulitis Exam Vital Signs Vital Sign - Last Date Time Temp Pulse Resp B/P Pulse Ox O2 Delivery O2 Flow Rate FiO2 09/02/16 14:39 36.5 85 18 106/64 96 Nasal Cannula 3.00 Intake and Output 09/01/16 09/01/16 09/02/16 Cumulative From/Thru 15:00 23:00 07:00 09/01/16 13:06 - 09/02/16 06:22 Intake Total 933 ml 933 ml Balance 933 ml 933 ml Intake Oral 600 ml 600 ml IV Total 333 ml 333 ml # Voids 4 4 Exam Physical Exam: GEN: Patient was awake, alert, responding appropriately to questions HEENT: PERRLA, EOMI, Neck soft supple, trachea midline, nomocephalic/atraumatic CV: +S1/S2, RRR, no murmur auscultated Respiratory: CTAB, no wheezes, rales, rhonchi GI: +bowel sounds x4, soft, compressible, non TTP EXT: Right lower extremity redness still at the line of demarcation nothing has gone past, right lower extremity tenderness to palpation, no edema bilaterally Neuro: CN II-XII grossly intact Psych: mood and affect were appropriate IVs and Medications Medications Reviewed: Medications were reviewed in detail Lab and Diagnostics Result Diagram: 09/02/1652909/02/16529 Assessment & Plan 76-year-old female who presents with right lower extremity cellulitis Right lower extremity cellulitis -Continue vancomycin and ceftriaxone -Blood cultures negative 24 hours -Leukocytosis improving white blood cell count today 10.3 yesterday 20.8 -Procalcitonin 0.25 continue to trend Pyuria/bacteriuria present on admission -Continue supportive therapy with hydration -Follow up final urine cultures currently negative 24 hours -Continue ceftriaxone Acute kidney injury -Creatinine 1.2 -Gentle hydration bolus 1 L normal saline -We will continue to monitor chronic, stable, CAD, Ischemic cardiomyopathy, s/p Cardiac pacemaker -clinically euvolemic, pt only takes lasix as needed as it worsens her incontinence, would hold off given acute infection. CVA,pt cannot recall residual deficit, although patient has multiple falls recently due losing balance despite using walker, PT ordered HTN (hypertension), hold off lasx, wound continue BB given CAD, coreg 6.25 decrease to 3.125 bid tomorrow, see if patient can tolerate Atrial fibrillation, continue coumadin per pharmacy Gout, continue allopurinol Diabetes mellitus, [id number] on adm, continue [id number] from 44(home), lispro SS COPD (chronic obstructive pulmonary disease), qvar bid, alb prn Narcolepsy Depression, this was addressed by PCP recently, continue follow up in the clinic Hyperlipidemia, continue statin former smoker, quit smoking 1mo ago, encouraged to continue Disposition: Patient is currently progressing well however she will need another 1-2 days of IV antibiotic therapy. The patient's leukocytosis is improving however the erythema from the cellulitis still has not receded significantly from the demarcation line. We will continue to monitor the patient. diet:cardiac dvt ppx:HSQ Full code Time spent Greater than 35 minutes Enedina Metcalf DO Sep 02, 2016 15:33
--- NOTE | 2016-09-02 15:52 | NUR ---
Social Work Note - Initial Assessment: D/A: See Initial Assessment. The Pt is a 76 y/o female that was admitted for right leg cellulitis, UTI. Readmission Score Risk 4. The Pts PCP is MD Jorge A Cordero and her primary insurance is Medicare with a [facility] supplement. EMR reviewed. SW met with the Pt to explain role and discuss discharge planning, SW telephone number written on white board. The Pt lives alone in an apartment in [place]. The Pt does not have a DPOA, paperwork given. She uses a walker daily and uses O2 at night. The Pt reports that she also has a power chair and has some concerns regarding the location of the non licensed nuclear equipment operator. These concerns were explored, Pt stated that RN is assisting with locating information regarding the power chair company. The Pt denies a current HH/SNF history. She reports that she has two caregivers who come 5x/week, SUE HINES is Olya Garza. The Pt also reports using Meals on Wheels. The Pt was discussed in rounds and will need an additional two days of IV Abx. The Pt denies any other needs at this time, SW to follow if needs arise. P: The Pt will likely discharge home when medically stable. The Pt denies any other needs at this time, SW to follow if needs arise. INGRID Trejo Panel Beater Addendum: 09/02/16 at 1552 by ABEBA TUCKER SS Amended: Links added.
[2016-09-02] MEDS: Vancomycin Inj 1,000 MG in IV Premix 1 EACH IV SCH (17:17)
[2016-09-02] MEDS: 0.9% Sodium Chloride 1,000 ML IV SCH (20:08)
[2016-09-02] MEDS: Insulin GLARgine 100 Unit/mL Syringe SUBQ SCH (20:23)
[2016-09-03] VITALS (9 sets, daily range): BP systolic 101–128; BP diastolic 61–77; PULSE 69–88; RESP 16–22; O2SAT 91–100
[2016-09-03] MEDS: HYDROmorphone 1 mg/mL Inj IVPUSH PRN ×3 (02:39→17:17)
[2016-09-03] MEDS: 0.9% Sodium Chloride 1,000 ML IV SCH ×2 (04:55→17:16)
--- NOTE | 2016-09-03 05:10 | NUR ---
Pain/Ambulation Pt has had more pain tonight than last night, but pt states pain is better than it had been during the day. Dilaudid and Tylenol very effective for pain control. R/T pain, ambulation has been more difficult. Pt needs 2PA for safety, to BSC not to BRP.
[2016-09-03 06:53] LABS: INR 1.55 ratio
[2016-09-03] MEDS: Vancomycin Dose per Pharmacist XX SCH (08:30)
[2016-09-03] MEDS: Fluticasone 100 mCg Inhaler INHALATION SCH ×2 (08:57→21:21)
[2016-09-03] MEDS: Heparin 5,000 Unit/mL Inj SUBQ SCH ×2 (08:59→21:21)
[2016-09-03] MEDS: Triamcinolone 0.1% 30 Gm Cream TOPICAL SCH ×2 (09:00→21:21)
[2016-09-03] MEDS: Venlafaxine XR 75 mg ER24 Capsule PO SCH (09:00)
[2016-09-03] MEDS: Polyethylene Glycol (PEG) 17 Gm Powder PO SCH (09:00)
[2016-09-03] MEDS: Insulin LISPRO 300 Unit/3 mL Inj SUBQ SCH ×4 (09:01→21:26)
[2016-09-03] MEDS: Pantoprazole 20 mg ER24 Tablet PO SCH (09:16)
--- NOTE | 2016-09-03 09:56 | PCM.PHAPRO ---
Progress Date of Service: Sep 03, 2016 Warfarin Dosing INR = 1.55, hct = 35.7, plts = 125. Pt continues on wafarin 5 mg PO qday for afib. INR goal = 2=3. Pt's INR today is still subtherapeutic at 1.55 but increasing. Will continue same regimen for now. Pt on sc hep for prophylaxis. Pharmacy will continue to follow this pt's warfarin therapy. Date Sep 02-Sep 03-Aug INR 1.37 1.48 1.55 INR change 0.11 0.07 Warf Dose 5 MG 5 5 mg Luisa Rodas S PharmD Sep 03, 2016 09:56
[2016-09-03] MEDS: cefTRIAXone Inj 2,000 MG in Dextrose 5% Minibag Plus 50 ML IV SCH (10:55)
--- NOTE | 2016-09-03 18:10 | NUR ---
Cellulitis- Patient complains of increased pain and pressure in right lower extremity when getting up to stand to transfer to bedside commode. She says it hurts too much to bear weight on it. Redness has receded from outlined marked area. Keeping leg elevated on pillows when in bed. Morphine and Tylenol have been effective for discomfort.
[2016-09-03] MEDS: Vancomycin Inj 1,000 MG in IV Premix 1 EACH IV SCH (18:21)
[2016-09-03] MEDS: Insulin GLARgine 100 Unit/mL Syringe SUBQ SCH (21:24)
--- NOTE | 2016-09-03 21:54 | PCM.PNMED ---
Subjective Date of Service Sep 03, 2016 Subjective Patient is beginning to feel a bit better. He has no further fever, chills or diaphoresis. Her right lower extremity is less painful. Exam Vital Signs Vital Sign - Last Date Time Temp Pulse Resp B/P Pulse Ox O2 Delivery O2 Flow Rate FiO2 09/03/16 18:02 36.8 79 20 128/77 92 Room Air 09/03/16 06:33 3.00 Intake and Output 09/02/16 09/02/16 09/03/16 Cumulative From/Thru 15:00 23:00 07:00 09/01/16 13:06 - 09/03/16 06:33 Intake Total 2238 ml 1379 ml 4550 ml Output Total 550 ml 500 ml 1050 ml Balance 1688 ml 879 ml 3500 ml Intake Oral 1070 ml 300 ml 1970 ml IV Total 1168 ml 1079 ml 2580 ml Output Urine Total 550 ml 500 ml 1050 ml # Voids 1 5 10 Exam General: Patient is lying supine in bed in no apparent distress. HEENT: Head is atraumatic and normocephalic. Eyes: Pupils are equally round and reactive to light and accommodation. Extraocular muscles are intact. Sclera are white, anicteric. Subconjunctival mucosa is pink. Ears and nose are unremarkable. Oropharynx: There is no mucosal lesions, there is no thrush, there is no pharyngitis. Neck: Is supple, there are no nodes, or masses or tenderness. Chest: Is clear to auscultation and percussion. There are no rales, rhonchi, wheezes or rubs. Heart: Rate, rhythm is regular. There is no murmur, rub or gallop. Abdomen: Good bowel sounds are present. Abdomen is obese, soft, nontender, no organomegaly or masses were appreciated. Extremities: The right lower extremity shows cellulitis which appears to be receding inside the lines previously drawn. Is still an extensive amount of cellulitis on the proximal third of the tibial area to the distal third of the tibial area. Mostly on the medial aspect of the right lower extremity. The extremities are well-perfused and there is minimal edema. Neurologic: There are no focal neurological deficits. Cranial nerves II through XII are intact. There are no sensory or motor deficits. Psychiatric: Patients mood is calm and shows no sign of agitation. She does appear to be slightly manic. Genital: Deferred Rectal: Deferred Lab and Diagnostics Result Diagram: 09/02/16 0530 09/03/16 06 Microbiology Name: CHUCK POP Age/Sex: 76/F Attend Dr: Nikki Gonzalez MD Acct: [id number] Unit: [id number] Status: ADM IN Location: [place] [address] Re09/01/16 Disch: Specimen: [id number] Collected: 09/01/16 Status: COMP Req#: [id number] Received: 09/01/16 Source: URINE CC Sp Desc : JT Islas Dr: Arcelia Starkey Ordered: URINE CULT Procedure Result Verified Site Microbiology ERVIN CULT URINE Final 09/03/16 Organism 1 ESCHERICHIA COLI U COLONY COUNT/QUANTITY >100,000 CFU/ml Cefazolin-predicts results for the oral agents, cefaclor,cefdinir, cefpodoximen, cefprozil, cefuroximne axetil, cephalexin and loracarbed when used for therapy of uncomplicated UTI's due to E. coli, K. pneumoniae, and Proteus mirabilis. Cefpodoxime, cefdinir and cefuroxime axetil may be tested individually because some isolates may be susceptible to these agents while testing resistant to cefazolin. (CLSI U124-Y01 pg 53) 1. ESCHERICHIA COLI M.I.C Interp --------- ------ * AMOXICILLIN/CLAVULATE <=2 S * AMPICILLIN <=2 S * CEFAZOLIN (CEPHALOSPORIN) UTI 4 S * CEFEPIME <=1 S * CEFTRIAXONE <=1 S * CEFUROXIME SODIUM 4 S * CIPROFLOXACIN >=4 R * ERTAPENEM <=0.5 S * GENTAMICIN <=1 S * IMIPENEM <=1 S * LEVOFLOXACIN >=8 R * NITROFURANTOIN 256 R * TETRACYCLINE <=1 S * TOBRAMYCIN <=1 S * TRIMETHOPRIM/SULFAMETHOXAZOLE <=20 S Assessment & Plan The patient is a 76-year-old female who presents with right lower extremity cellulitis. Right lower extremity cellulitis, present at the time of admission. Improving. -Continue ceftriaxone. We will discontinue vancomycin. -We will check Blood cultures returned negative 24 hours -Leukocytosis is improving -Procalcitonin is elevated and we will continue to trend Escherichia coli urinary tract infection with Pyuria/bacteriuria present on admission -Continue supportive therapy with hydration -We will follow up on final urine cultures -Continue ceftriaxone Acute kidney injury, present at the time of admission. Improving. -Creatinine 1.2 -Gentle hydration bolus 1 L normal saline -We will continue to monitor CAD, Ischemic cardiomyopathy, s/p Cardiac pacemaker -clinically euvolemic, pt only takes lasix as needed as it worsens her incontinence, would hold off given acute infection. History of CVA -,pt cannot recall residual deficit, although patient has multiple falls recently due losing balance despite using walker, PT ordered HTN (hypertension), -hold off lasx, wound continue BB given CAD, coreg 6.25 decrease to 3.125 bid tomorrow, see if patient can tolerate Atrial fibrillation, -continue coumadin per pharmacy Gout, -continue allopurinol Diabetes mellitus, [id number] on adm, -continue [id number] from 44(home), lispro SS COPD (chronic obstructive pulmonary disease), -Continue qvar bid, alb prn Narcolepsy -Continue observation and supportive care Depression -this was addressed by PCP recently, continue follow up in the clinic Hyperlipidemia -continue statin The patient is a former smoker, quit smoking 1mo ago, encouraged to continue Disposition: Patient is currently progressing well however she will need another 1-2 days more of IV antibiotic therapy. diet:cardiac dvt ppx:HSQ Full code Pain Evaluation: Adequate Pain Control GI Prophylaxis: Proton Pump Inhibitor VTE Prophylaxis: Theraputic Anticoag with Warfarin Resuscitation Status: CPR: Attempt Resuscitation PattersonGato can MD Sep 03, 2016 21:54
[2016-09-04] VITALS (10 sets, daily range): BP systolic 114–159; BP diastolic 66–95; PULSE 72–95; RESP 16–20; O2SAT 93–97
[2016-09-04 02:32] LABS: APPEARANCE,URINE CLOUDY (CLEAR,HAZY); COLOR,URINE STRAW (YELLOW); OCCULT BLOOD,URINE TRACE (NEGATIVE); UROBILINOGEN,URINE NORMAL (NORMAL)
[2016-09-04 02:33] LABS: YEAST,URINE MODERATE (NONE SEEN)
--- NOTE | 2016-09-04 06:08 | NUR ---
Pain/Ambulation Pt has had better pain management and has been able to ambulate much better tonight. Working slowly is better for safe transferring.
[2016-09-04 06:55] LABS: INR 1.66 ratio
[2016-09-04 07:05] LABS: BASOPHILS % (AUTO) 0.4 % (0-3); EOSINOPHILS % (AUTO) 4.7 % (0-5); MONOCYTES % (AUTO) 10.3 % (4-12); Mean Corpuscular Hemoglobin 30.7 pg (27.0-35.0); Mean Corpuscular Volume 95.5 fL (81-100); NEUTROPHILS % (AUTO) 64.7 % (40-74); Platelet Count 160 bil/L (150-400)
[2016-09-04 07:21] LABS: Magnesium 1.5 mg/dL (1.6-2.6); Phosphorus 3.3 mg/dL (2.5-4.9)
[2016-09-04] MEDS ORDERED: Magnesium Sulf 4 Gm/100 mL H2O 4 GM in IV Premix 1 EACH IV ONE (08:50)
[2016-09-04] MEDS: cefTRIAXone Inj 2,000 MG in Dextrose 5% Minibag Plus 50 ML IV SCH (09:50)
[2016-09-04] MEDS: Pantoprazole 20 mg ER24 Tablet PO SCH (09:52)
[2016-09-04] MEDS: Venlafaxine XR 75 mg ER24 Capsule PO SCH (09:52)
[2016-09-04] MEDS: Polyethylene Glycol (PEG) 17 Gm Powder PO SCH (09:53)
[2016-09-04] MEDS: Heparin 5,000 Unit/mL Inj SUBQ SCH ×2 (09:53→20:17)
[2016-09-04] MEDS: Fluticasone 100 mCg Inhaler INHALATION SCH ×2 (09:54→20:16)
[2016-09-04] MEDS: Triamcinolone 0.1% 30 Gm Cream TOPICAL SCH ×2 (09:55→20:40)
[2016-09-04] MEDS: Insulin LISPRO 300 Unit/3 mL Inj SUBQ SCH ×4 (10:22→21:14)
[2016-09-04] MEDS: 0.9% Sodium Chloride 1,000 ML IV SCH ×3 (10:23→21:14)
--- NOTE | 2016-09-04 13:15 | NUR ---
sleepiness/incont Pt reports that when she doesn't take her nuvigil she sleeps alot. Pt very sleepy today. Arouses with touch. Pt unaware when she sleeps of her incont. Bed was completely soaked from shoulders to toes, dripping off the bed. Complete bed bath and linen change provided to the patient.
[2016-09-04] MEDS ORDERED: Vancomycin Serum Trough XX ONE (17:30)
--- NOTE | 2016-09-04 18:23 | NUR ---
Pain/mobility/cellulitis Pain occurs when dangling leg after being in a elevated position. Once leg is dangled for awile better. Extremely tender to touch. 1 person assist with transfers Up to chair for meals Up to [facility] x6 Showered Right leg marked and redness is receding. except around ankle region - deep red in color. Dr Zuniga marked the ankle during his assessment.
[2016-09-04] MEDS: Insulin GLARgine 100 Unit/mL Syringe SUBQ SCH (21:14)
--- NOTE | 2016-09-04 23:22 | PCM.PNMED ---
Subjective Date of Service Sep 04, 2016 Subjective Patient has been somewhat somnolent throughout the day. She has no other new complaints. Her right lower extremity leg pain is feeling better. Exam Vital Signs Vital Sign - Last Date Time Temp Pulse Resp B/P Pulse Ox O2 Delivery O2 Flow Rate FiO2 09/04/16 22:36 36.7 81 20 138/81 96 Nasal Cannula 2.00 Intake and Output 09/03/16 09/03/16 09/04/16 Cumulative From/Thru 14:59 22:59 06:59 09/01/16 13:06 - 09/04/16 06:22 Intake Total 2211 ml 1615 ml 8376 ml Output Total 500 ml 1550 ml Balance 1711 ml 1615 ml 6826 ml Intake Oral 1060 ml 500 ml 3530 ml IV Total 1151 ml 1115 ml 4846 ml Output Urine Total 500 ml 1550 ml # Voids 3 13 # Bowel Movements 0 0 Exam General: Patient is lying supine in bed in no apparent distress. HEENT: Head is atraumatic and normocephalic. Eyes: Pupils are equally round and reactive to light and accommodation. Extraocular muscles are intact. Sclera are white, anicteric. Subconjunctival mucosa is pink. Ears and nose are unremarkable. Oropharynx: There is no mucosal lesions, there is no thrush, there is no pharyngitis. Neck: Is supple, there are no nodes, or masses or tenderness. Chest: Is clear to auscultation and percussion. There are no rales, rhonchi, wheezes or rubs. Heart: Rate, rhythm is regular. There is no murmur, rub or gallop. Abdomen: Good bowel sounds are present. Abdomen is obese, soft, with no tenderness. There is no rebound tenderness. Also, no organomegaly or masses were appreciated. Extremities: The right lower extremity shows cellulitis which he needs to be receding inside the lines previously drawn. There is still an extensive amount of cellulitis on the proximal third of the tibial area to the distal third of the tibial area. Mostly on the medial aspect of the right lower extremity. The extremities are well-perfused and there is minimal edema. Neurologic: There are no focal neurological deficits. Cranial nerves II through XII are intact. There are no sensory or motor deficits. Psychiatric: Patients mood is calm and shows no sign of agitation. She does continue to be slightly manic. Genital: Deferred Rectal: Deferred Lab and Diagnostics Result Diagram: 09/04/1661409/04/16614 Microbiology Name: CHUCK POP Age/Sex: 76/F Attend Dr: Nikki Gonzalez MD Acct: [id number] Unit: [id number] Status: ADM IN Location: [place] [address] Re09/01/16 Disch: Specimen: [id number] Collected: 09/01/16 Status: COMP Req#: [id number] Received: 09/01/16 Source: URINE CC Sp Desc : JT Islas Dr: Arcelia Starkey Ordered: URINE CULT Procedure Result Verified Site Microbiology ERVIN CULT URINE Final 09/03/16 Organism 1 ESCHERICHIA COLI U COLONY COUNT/QUANTITY >100,000 CFU/ml Cefazolin-predicts results for the oral agents, cefaclor,cefdinir, cefpodoximen, cefprozil, cefuroximne axetil, cephalexin and loracarbed when used for therapy of uncomplicated UTI's due to E. coli, K. pneumoniae, and Proteus mirabilis. Cefpodoxime, cefdinir and cefuroxime axetil may be tested individually because some isolates may be susceptible to these agents while testing resistant to cefazolin. (CLSI M692-E30 pg 53) 1. ESCHERICHIA COLI M.I.C Interp --------- ------ * AMOXICILLIN/CLAVULATE <=2 S * AMPICILLIN <=2 S * CEFAZOLIN (CEPHALOSPORIN) UTI 4 S * CEFEPIME <=1 S * CEFTRIAXONE <=1 S * CEFUROXIME SODIUM 4 S * CIPROFLOXACIN >=4 R * ERTAPENEM <=0.5 S * GENTAMICIN <=1 S * IMIPENEM <=1 S * LEVOFLOXACIN >=8 R * NITROFURANTOIN 256 R * TETRACYCLINE <=1 S * TOBRAMYCIN <=1 S * TRIMETHOPRIM/SULFAMETHOXAZOLE <=20 S X-Rays, CTs and MRIs PROCEDURE: X-RAY RIGHT TIBIA/FIBULA, TWO VIEWS ([id number]) INDICATIONS: right leg swelling and erthyma TECHNIQUE: 2 views of the tibia and fibula were acquired. COMPARISON: None. FINDINGS: Bones: No fractures or dislocations. No suspicious bony lesions. Tibiotalar degenerative changes. Possible small less than 5 mm loose bodies projecting posterior joint space of the right knee Soft tissues: No suspicious soft tissue calcifications or masses. IMPRESSION: No fracture. No focal osseous destruction. Degenerative changes as above. Dictated by: Moises Barber M.D. on 09/01/2016 at 14:05 Approved by: Moises Barber M.D. on 09/01/2016 at 14:08 PROCEDURE: US VEINOUS LEG DUPLEX UNILATERAL, RIGHT INDICATIONS: right leg swelling TECHNIQUE: Real-time imaging, as well as color and pulse Doppler interrogation, were performed of the lower extremity deep veins from the inguinal ligament to the popliteal fossa. COMPARISON: None. FINDINGS: The deep veins are normally compressible, and free of intraluminal thrombus. Color and pulse Doppler demonstrate normal phasic intraluminal flow. There is normal augmentation response to distal compression maneuver. IMPRESSION: No evidence of deep venous thrombosis. Dictated by: Moises Barber M.D. on 09/01/2016 at 15:01 Approved by: Moises Barber M.D. on 09/01/2016 at 15:02 Assessment & Plan The patient is a 76-year-old female who presents with right lower extremity cellulitis. Right lower extremity cellulitis, present at the time of admission. Improving slowly. -Continue ceftriaxone. We have discontinued vancomycin. -We will check Blood cultures returned negative 48 hours -Leukocytosis is improving -Procalcitonin is elevated and we will continue to trend Escherichia coli urinary tract infection with Pyuria/bacteriuria present on admission -Continue supportive therapy with hydration -Continue ceftriaxone Acute kidney injury, present at the time of admission. Improving. -Creatinine 1.2 -Gentle hydration bolus 1 L normal saline -We will continue to monitor CAD, Ischemic cardiomyopathy, s/p Cardiac pacemaker -clinically euvolemic, pt only takes lasix as needed as it worsens her incontinence, would hold off given acute infection. History of CVA -,pt cannot recall residual deficit, although patient has multiple falls recently due losing balance despite using walker, PT ordered HTN (hypertension), -hold off lasx, wound continue BB given CAD, coreg 6.25 decrease to 3.125 bid tomorrow, see if patient can tolerate Atrial fibrillation, -continue coumadin per pharmacy Gout, -continue allopurinol Diabetes mellitus, [id number] on adm, -continue [id number] from 45(home), lispro SS COPD (chronic obstructive pulmonary disease), -Continue qvar bid, alb prn Narcolepsy -Continue observation and supportive care - Patient states she took "newvigil" which is no longer on the market Depression -this was addressed by PCP recently, continue follow up in the clinic Hyperlipidemia -continue statin The patient is a former smoker, quit smoking 1mo ago, encouraged to continue Disposition: Patient is currently progressing well however she will need another 1-2 days more of IV antibiotic therapy. diet:cardiac dvt ppx:HSQ Full code Pain Evaluation: Adequate Pain Control GI Prophylaxis: Proton Pump Inhibitor VTE Prophylaxis: Theraputic Anticoag with Warfarin Resuscitation Status: CPR: Attempt Resuscitation NorwayGato MD Sep 04, 2016 23:22
[2016-09-05] VITALS (7 sets, daily range): BP systolic 125–155; BP diastolic 73–87; PULSE 76–95; RESP 16–20; O2SAT 92–96
[2016-09-05] MEDS: HYDROmorphone 1 mg/mL Inj IVPUSH PRN ×2 (00:31→20:02)
--- NOTE | 2016-09-05 06:00 | NUR ---
Pain Pt continues to have pain when right leg is dangled from an elevated position. Pt was offered bedpan to reduce pain during the night due to the frequency of patient needing to get up and use the bathroom. Pt declined and continues to use BSC.
[2016-09-05 06:41] LABS: BASOPHILS % (AUTO) 0.3 % (0-3); EOSINOPHILS % (AUTO) 4.5 % (0-5); MONOCYTES % (AUTO) 10.6 % (4-12); Mean Corpuscular Hemoglobin 30.6 pg (27.0-35.0); NEUTROPHILS % (AUTO) 64.2 % (40-74); Platelet Count 161 bil/L (150-400)
[2016-09-05 06:48] LABS: INR 1.56 ratio
[2016-09-05 07:12] LABS: Magnesium 1.8 mg/dL (1.6-2.6)
[2016-09-05] MEDS: 0.9% Sodium Chloride 1,000 ML IV SCH (07:25)
[2016-09-05] MEDS: Pantoprazole 20 mg ER24 Tablet PO SCH (07:25)
[2016-09-05] MEDS: Polyethylene Glycol (PEG) 17 Gm Powder PO SCH (08:11)
[2016-09-05] MEDS: Heparin 5,000 Unit/mL Inj SUBQ SCH ×2 (08:11→20:07)
[2016-09-05] MEDS: Venlafaxine XR 75 mg ER24 Capsule PO SCH (08:12)
[2016-09-05] MEDS: Insulin LISPRO 300 Unit/3 mL Inj SUBQ SCH ×4 (08:12→21:54)
[2016-09-05] MEDS: Triamcinolone 0.1% 30 Gm Cream TOPICAL SCH ×2 (08:12→20:08)
[2016-09-05] MEDS: Fluticasone 100 mCg Inhaler INHALATION SCH ×2 (08:12→20:06)
[2016-09-05] MEDS: cefTRIAXone Inj 2,000 MG in Dextrose 5% Minibag Plus 50 ML IV SCH (08:14)
[2016-09-05] MEDS ORDERED: Magnesium Sulf 2 Gm/50mL Water 2 GM in IV Premix 1 EACH IV ONE (08:25)
--- NOTE | 2016-09-05 15:53 | NUR ---
Cellulitis/mobility/pain/food MD re-marked leg as area of redness improved. Pt cont to c/o pain with standing on it, but more steady on feet today. No coughing or choking noted with the dysphagia [facility] soft diet. Order noted to change to thin liquids. MD notified pt would DC in morning tomorrow.
[2016-09-05] MEDS: Insulin GLARgine 100 Unit/mL Syringe SUBQ SCH (21:54)
--- NOTE | 2016-09-05 23:12 | PCM.PNMED ---
Subjective Date of Service Sep 05, 2016 Subjective Patient is in good spirits and is beginning to feel better. When she woke up this morning she was pleased to see that the erythema had regress considerably on her right lower extremity. She has no other new complaints. Exam Vital Signs Vital Sign - Last Date Time Temp Pulse Resp B/P Pulse Ox O2 Delivery O2 Flow Rate FiO2 09/05/16 19:51 Supplement Oxygen 09/05/16 19:51 36.8 87 19 153/87 92 09/05/16 03:54 2.00 Intake and Output 09/04/16 09/04/16 09/05/16 Cumulative From/Thru 15:00 23:00 07:00 09/01/16 13:06 - 09/05/16 06:27 Intake Total 2400 ml 2950 ml 62362 ml Output Total 250 ml 725 ml 2525 ml Balance 2150 ml 2225 ml 51839 ml Intake Oral 1300 ml 646 ml 5476 ml IV Total 1100 ml 2304 ml 8250 ml Output Urine Total 250 ml 725 ml 2525 ml # Voids 6 1 20 # Bowel Movements 1 1 Exam General: Patient is lying supine in bed in no apparent distress. She is in good spirits. HEENT: Head is atraumatic and normocephalic. Eyes: Pupils are equally round and reactive to light and accommodation. Extraocular muscles are intact. Sclera are white, anicteric. Subconjunctival mucosa is pink. Ears and nose are unremarkable. Oropharynx: There is no mucosal lesions, there is no thrush, there is no pharyngitis. Neck: Is supple, there are no nodes, or masses or tenderness. Chest: Is clear to auscultation and percussion. There are no rales, rhonchi, wheezes or rubs. Heart: Rate, rhythm is regular. There is no murmur, rub or gallop. Abdomen: Good bowel sounds are present. Abdomen is obese, soft, with no tenderness. There is no rebound tenderness. Also, no organomegaly or masses were appreciated. Extremities: The right lower extremity shows cellulitis which is markedly improved today. The extremities are well-perfused and there is minimal edema. Neurologic: There are no focal neurological deficits. Cranial nerves II through XII are intact. There are no sensory or motor deficits. Psychiatric: Patients mood is calm and shows no sign of agitation. She does continue to be slightly manic. She remains in good spirits. Genital: Deferred Rectal: Deferred Lab and Diagnostics Result Diagram: 09/05/1661409/05/16614 Microbiology Name: CHUCK POP Age/Sex: 76/F Attend Dr: Nikki Gonzalez MD Acct: [id number] Unit: [id number] Status: ADM IN Location: [place] [address] Re09/01/16 Disch: Specimen: [id number] Collected: 09/01/16 Status: COMP Req#: [id number] Received: 09/01/16 Source: URINE CC Sp Desc : PP Janel Dr: Arcelia Starkey Ordered: URINE CULT Procedure Result Verified Site Microbiology EVRIN CULT URINE Final 09/03/16 Organism 1 ESCHERICHIA COLI U COLONY COUNT/QUANTITY >100,000 CFU/ml Cefazolin-predicts results for the oral agents, cefaclor,cefdinir, cefpodoximen, cefprozil, cefuroximne axetil, cephalexin and loracarbed when used for therapy of uncomplicated UTI's due to E. coli, K. pneumoniae, and Proteus mirabilis. Cefpodoxime, cefdinir and cefuroxime axetil may be tested individually because some isolates may be susceptible to these agents while testing resistant to cefazolin. (CLSI Z596-I08 pg 53) 1. ESCHERICHIA COLI M.I.C Interp --------- ------ * AMOXICILLIN/CLAVULATE <=2 S * AMPICILLIN <=2 S * CEFAZOLIN (CEPHALOSPORIN) UTI 4 S * CEFEPIME <=1 S * CEFTRIAXONE <=1 S * CEFUROXIME SODIUM 4 S * CIPROFLOXACIN >=4 R * ERTAPENEM <=0.5 S * GENTAMICIN <=1 S * IMIPENEM <=1 S * LEVOFLOXACIN >=8 R * NITROFURANTOIN 256 R * TETRACYCLINE <=1 S * TOBRAMYCIN <=1 S * TRIMETHOPRIM/SULFAMETHOXAZOLE <=20 S X-Rays, CTs and MRIs PROCEDURE: X-RAY RIGHT TIBIA/FIBULA, TWO VIEWS ([id number]) INDICATIONS: right leg swelling and erthyma TECHNIQUE: 2 views of the tibia and fibula were acquired. COMPARISON: None. FINDINGS: Bones: No fractures or dislocations. No suspicious bony lesions. Tibiotalar degenerative changes. Possible small less than 5 mm loose bodies projecting posterior joint space of the right knee Soft tissues: No suspicious soft tissue calcifications or masses. IMPRESSION: No fracture. No focal osseous destruction. Degenerative changes as above. Dictated by: Moises Barber M.D. on 09/01/2016 at 14:05 Approved by: Moises Barber M.D. on 09/01/2016 at 14:08 PROCEDURE: US VEINOUS LEG DUPLEX UNILATERAL, RIGHT INDICATIONS: right leg swelling TECHNIQUE: Real-time imaging, as well as color and pulse Doppler interrogation, were performed of the lower extremity deep veins from the inguinal ligament to the popliteal fossa. COMPARISON: None. FINDINGS: The deep veins are normally compressible, and free of intraluminal thrombus. Color and pulse Doppler demonstrate normal phasic intraluminal flow. There is normal augmentation response to distal compression maneuver. IMPRESSION: No evidence of deep venous thrombosis. Dictated by: Moises Barber M.D. on 09/01/2016 at 15:01 Approved by: Moises Barber M.D. on 09/01/2016 at 15:02 Assessment & Plan The patient is a 76-year-old female who presents with right lower extremity cellulitis. Right lower extremity cellulitis, present at the time of admission. Improving significantly since yesterday. -Continue ceftriaxone. We have discontinued vancomycin. -We will check Blood cultures returned negative 48 hours -Leukocytosis is improving -Procalcitonin is elevated and we will continue to trend Escherichia coli urinary tract infection with Pyuria/bacteriuria present on admission -Continue supportive therapy with hydration -Continue ceftriaxone Acute kidney injury, present at the time of admission. Improving. -Creatinine 1.2 -Gentle hydration bolus 1 L normal saline -We will continue to monitor CAD, Ischemic cardiomyopathy, s/p Cardiac pacemaker -clinically euvolemic, pt only takes lasix as needed as it worsens her incontinence, would hold off given acute infection. History of CVA -,pt cannot recall residual deficit, although patient has multiple falls recently due losing balance despite using walker, PT ordered HTN (hypertension), -hold off lasx, wound continue BB given CAD, coreg 6.25 decrease to 3.125 bid tomorrow, see if patient can tolerate Atrial fibrillation, -continue coumadin per pharmacy Gout, -continue allopurinol Diabetes mellitus, [id number] on adm, -continue [id number] from 44(home), lispro SS COPD (chronic obstructive pulmonary disease), -Continue qvar bid, alb prn Narcolepsy -Continue observation and supportive care - Patient states she took "newvigil" which is no longer on the market Depression -this was addressed by PCP recently, continue follow up in the clinic Hyperlipidemia -continue statin The patient is a former smoker, quit smoking 1mo ago, encouraged to continue Disposition: Patient is currently progressing well however she will need another 1-2 days more of IV antibiotic therapy. diet:cardiac dvt ppx:HSQ Full code Pain Evaluation: Adequate Pain Control GI Prophylaxis: Proton Pump Inhibitor VTE Prophylaxis: Theraputic Anticoag with Warfarin Resuscitation Status: CPR: Attempt Resuscitation NadiaGato carolina MD Sep 05, 2016 23:11
[2016-09-06] MEDS ORDERED: Sodium Chloride LOK Flush 10 mL Syringe IVFLUSH SCH (00:30)
[2016-09-06 00:40] VITALS: BP 119/67; PULSE 80; RESP 16; O2SAT 92
[2016-09-06] MEDS: HYDROmorphone 1 mg/mL Inj IVPUSH PRN (02:29)
[2016-09-06 06:15] VITALS: BP 146/88; PULSE 79; RESP 18; O2SAT 92
--- NOTE | 2016-09-06 06:31 | NUR ---
Pain medication Pt is worried about pain control when she is discharged. Will pass along to oncoming nurse.
[2016-09-06 07:17] LABS: BASOPHILS % (AUTO) 0.5 % (0-3); EOSINOPHILS % (AUTO) 5.3 % (0-5); Mean Corpuscular Hemoglobin 30.8 pg (27.0-35.0); Mean Corpuscular Volume 94.9 fL (81-100); NEUTROPHILS % (AUTO) 60.9 % (40-74); Platelet Count 180 bil/L (150-400)
[2016-09-06 07:31] LABS: INR 1.33 ratio
[2016-09-06 07:45] LABS: Magnesium 1.7 mg/dL (1.6-2.6)
[2016-09-06 09:00] VITALS: BP 144/82; PULSE 63; RESP 18; O2SAT 94
[2016-09-06] MEDS: cefTRIAXone Inj 2,000 MG in Dextrose 5% Minibag Plus 50 ML IV SCH (09:00)
[2016-09-06] MEDS: Pantoprazole 20 mg ER24 Tablet PO SCH (09:03)
[2016-09-06] MEDS: Venlafaxine XR 75 mg ER24 Capsule PO SCH (09:03)
[2016-09-06] MEDS: Insulin LISPRO 300 Unit/3 mL Inj SUBQ SCH ×2 (09:05→12:01)
[2016-09-06] MEDS: Triamcinolone 0.1% 30 Gm Cream TOPICAL SCH (09:06)
[2016-09-06] MEDS: Heparin 5,000 Unit/mL Inj SUBQ SCH (09:06)
[2016-09-06] MEDS: Fluticasone 100 mCg Inhaler INHALATION SCH (09:06)
[2016-09-06] MEDS: Polyethylene Glycol (PEG) 17 Gm Powder PO SCH (09:06)
--- NOTE | 2016-09-06 09:12 | NUR ---
PRE CODER witnessed [facility]'s Signature NELLA DeweySW
--- NOTE | 2016-09-06 09:12 | NUR ---
Social Work Note Gabriela Bennett has been admitted for 5 days - EMR reviewed: Pt being treated for UTI, cellulitis. MANAGER SOFTWARE met with pt - Pt states she is feeling better, is hoping to go home later today. Pt states she will call her chore provider and let them know that she will need help again. Pt is worried about getting into her apartment at [facility] - She states that she came to ED by EMS and she does not have her keys. MANAGER SOFTWARE called [facility] - Spoke with Mendy [phone] who states that they will help her get into her car. Pt would like to have [facility] taxi to take her home. Pt denies any needs, states that she has a friend next door that will help if needed. Plan: Home with [facility] taxi and home care givers. BLANCA Dewey
--- NOTE | 2016-09-06 11:16 | NUR ---
Completed [facility] transport form and faxed to [facility], asked for [phone] pick pack worker and patient will be waiting in the main lobby. Updated DIRECTOR OF MECHANICAL ENGINEERING
--- NOTE | 2016-09-06 11:31 | PCM.DIMED ---
Discharge Instructions Date of Service Sep 06, 2016 Dates of Hospitalization Sep 01, 2016 at 15:53 Discharge Diagnosis Discharge Diagnosis Cellulitis of the Right Lower Extremity Diet Heart Healthy Activity Other (No driving or operating any heavy equipment due to Narcolepsy.) Call your provider Fever or Chills, Shortness of breath, Bleeding, Chest pain, Vomitting, Excessive diarrhea, Weakness (unilateral) Patient Instructions Follow-up Provider: Jorge A Cordero MD Follow-up with PCP in: 1 week Gato Zuniga MD Sep 06, 2016 11:31
[2016-09-06] MEDS ORDERED: GABA300C PO (11:39)
[2016-09-06] MEDS ORDERED: CEFU500T61 PO (11:39)
[2016-09-06] MEDS ORDERED: FLUT100D2 INHALATION (11:39)
--- NOTE | 2016-09-06 13:22 | NUR ---
Discharge Patient discharged home via [facility] taxi. Patient took all belongings with her. Discharge instructions discussed with patient and prescriptions were electronically sent to [facility] by the MD. [facility] will deliver to her this afternoon at her home as confirmed by the RN. Discharge instructions and follow up appointments discussed with patient.
--- NOTE | 2016-09-07 01:13 | PCM.DC.MED ---
Discharge Summary Date of Service Sep 06, 2016 Dates of Hospitalization Date of Hospital Admission Sep 01, 2016 at 15:53 Date of Discharge: Sep 06, 2016 Providers: Admitting Physician: Nikki Gonzalez MD Primary Care Physician: Jorge A Cordero MD Attending Physician: Nikki Gonzalez MD Diagnosis at Time of Discharge Diagnosis at Time of Discharge Cellulitis of the Right Lower Extremity Procedures XRay, CTs & MRIs PROCEDURE: X-RAY RIGHT TIBIA/FIBULA, TWO VIEWS ([id number]) INDICATIONS: right leg swelling and erthyma TECHNIQUE: 2 views of the tibia and fibula were acquired. COMPARISON: None. FINDINGS: Bones: No fractures or dislocations. No suspicious bony lesions. Tibiotalar degenerative changes. Possible small less than 5 mm loose bodies projecting posterior joint space of the right knee Soft tissues: No suspicious soft tissue calcifications or masses. IMPRESSION: No fracture. No focal osseous destruction. Degenerative changes as above. Dictated by: Moises Barber M.D. on 09/01/2016 at 14:05 Approved by: Moises Barber M.D. on 09/01/2016 at 14:08 PROCEDURE: US VEINOUS LEG DUPLEX UNILATERAL, RIGHT INDICATIONS: right leg swelling TECHNIQUE: Real-time imaging, as well as color and pulse Doppler interrogation, were performed of the lower extremity deep veins from the inguinal ligament to the popliteal fossa. COMPARISON: None. FINDINGS: The deep veins are normally compressible, and free of intraluminal thrombus. Color and pulse Doppler demonstrate normal phasic intraluminal flow. There is normal augmentation response to distal compression maneuver. IMPRESSION: No evidence of deep venous thrombosis. Dictated by: Moises Barber M.D. on 09/01/2016 at 15:01 Approved by: Moises Barber M.D. on 09/01/2016 at 15:02 Brief History Patient is a 76-year-old female with multiple commodities p/w 2days of leg swelling and pain. Patient with usual state of health until 2 days ago . She started noticing itchiness, mild swelling on her right lower leg, which got progressively worsened for the past 2 days, developed pain, redness, decided to come to hospital. Patient denied fever or chills at home, denied any neck trauma recently, patient also had nausea w/o vomiting for past 2days, decreased po intake. Patient was found to have cellulitis of her lower extremity in the emergency room and was admitted to the hospitalist service for further evaluation and treatment. Hospital Course The patient is a 76-year-old female who presents with right lower extremity cellulitis. Right lower extremity cellulitis, present at the time of admission. Improving significantly over the last 48 hours. -Continue ceftriaxone today and then will discharge home on oral Ceftin 500 mg by mouth twice a day for 10 days. We have discontinued vancomycin. -Blood cultures returned negative 48 hours -Leukocytosis resolved Escherichia coli urinary tract infection with Pyuria/bacteriuria present on admission -Continue supportive therapy with hydration -Continue ceftriaxone today and switched to cefuroxime 500 mg by mouth twice a day for 10 days as above. Acute kidney injury, present at the time of admission. Improving. -Creatinine 1.2 -Gentle hydration bolus 1 L normal saline -We will continue to monitor CAD, Ischemic cardiomyopathy, s/p Cardiac pacemaker -clinically euvolemic, pt only takes lasix as needed as it worsens her incontinence, would hold off given acute infection. History of CVA -,pt cannot recall residual deficit, although patient has multiple falls recently due losing balance despite using walker, PT ordered HTN (hypertension), -hold off lasx, wound continue BB given CAD, coreg 6.25 decrease to 3.125 bid tomorrow, see if patient can tolerate Atrial fibrillation, -continue coumadin Gout, -continue allopurinol Diabetes mellitus, [id number] on adm, -continue [id number] from 44(home), lispro SS COPD (chronic obstructive pulmonary disease), -Continue qvar bid, alb prn Narcolepsy -Continue observation and supportive care - Patient states she took "newvigil" which is no longer on the market Depression -this was addressed by PCP recently, continue follow up in the clinic Hyperlipidemia -continue statin The patient is a former smoker, quit smoking 1mo ago, encouraged to continue Disposition: Patient is currently progressing well and will be discharged home today on oral antibiotics diet:cardiac dvt ppx:HSQ Full code Exam Vital Signs (Last) Date Time Temp Pulse Resp B/P Pulse Ox O2 Delivery O2 Flow Rate FiO2 09/06/16 09:00 36.5 63 18 144/82 94 Room Air 09/05/16 03:54 2.00 Exam General: Patient is lying supine in bed in no apparent distress. She is in good spirits. HEENT: Head is atraumatic and normocephalic. Eyes: Pupils are equally round and reactive to light and accommodation. Extraocular muscles are intact. Sclera are white, anicteric. Subconjunctival mucosa is pink. Ears and nose are unremarkable. Oropharynx: There is no mucosal lesions, there is no thrush, there is no pharyngitis. Neck: Is supple, there are no nodes, or masses or tenderness. Chest: Is clear to auscultation and percussion. There are no rales, rhonchi, wheezes or rubs. Heart: Rate, rhythm is regular. There is no murmur, rub or gallop. Abdomen: Good bowel sounds are present. Abdomen is obese, soft, with no tenderness. There is no rebound tenderness. Also, no organomegaly or masses were appreciated. Extremities: The right lower extremity shows cellulitis which is markedly improved again today. The extremities are well-perfused and there is minimal edema. Neurologic: There are no focal neurological deficits. Cranial nerves II through XII are intact. There are no sensory or motor deficits. Psychiatric: Patients mood is calm and shows no sign of agitation. She does continue to be slightly manic. She remains in good spirits. Genital: Deferred Rectal: Deferred Test 09/01/16 13:20 09/02/16 05:30 09/04/16 01:50 09/04/16 06:15 Hold Purple Top Tube Received (Received) Hold Blue Top Tube Received (Received) Lactic Acid Level 1.4mmol/L (0.4-2.0) Hold [place] Top Tube Received (Received) Hold [place] Top Tube Received (Received) Procalcitonin 0.25ng/mL (0.00-0.08) Urine Color Straw (YELLOW) Urine Appearance Cloudy (CLEAR,HAZY) Urine pH 6.0 (5.0-8.0) Urine Specific [place] 1.005 (1.003-1.035) Urine Protein Negativemg/dL (NEG,TRACE) Urine Glucose (UA) Negativemg/dL (NEGATIVE) Urine Ketones Negativemg/dL (NEGATIVE) Urine Occult Blood Trace (NEGATIVE) Urine Nitrite Positive (NEGATIVE) Urine Bilirubin Negative (NEGATIVE) Urine Urobilinogen Normalmg/dL (NORMAL) Urine Leukocyte Esterase Small (NEGATIVE) Urine RBC 0-2/hpf (0-2) Urine WBC 0-5/hpf (0-5) Urine Epithelial Cells Many/hpf (NONE-MOD) Urine Crystals None seen (NONE SEEN) Urine Bacteria Few/hpf (NONE-FEW) Urine Hyaline Casts None/lpf (NONE) Urine Granular Casts None seen (NONE SEEN) Urine Waxy Casts None seen (NONE SEEN) Urine Red Blood Cell Casts None seen (NONE SEEN) Urine White Blood Cell Casts None seen (NONE SEEN) Urine Mucus None seen (None Seen) Urine Trichomonas None seen (NONE SEEN) Urine Yeast Moderate (NONE SEEN) Urinalysis Comment None Urine Culture Reflexed Indicated Hemoglobin A1c 8.0% (4.8-5.6) Phosphorus Level 3.3mg/dL (2.5-4.9) Test 09/06/16 06:55 White Blood Count 6.0th/mm3 (3.8-10.1) Red Blood Count 3.89mil/mm3 (3.90-5.20) Hemoglobin 12.0g/dL (12.0-15.6) Hematocrit 36.9% (35.0-46.0) Mean Corpuscular Volume 94.9fL (81-100) Mean Corpuscular Hemoglobin 30.8pg (27.0-35.0) Mean Corpuscular Hemoglobin Concent 32.5% (32.0-37.0) Red Cell Distribution Width 13.0% (12.3-15.4) Platelet Count 180bil/L (150-400) Neutrophils (%) (Auto) 60.9% (40-74) Lymphocytes (%) (Auto) 23.3% (14-46) Monocytes (%) (Auto) 9.0% (4-12) Eosinophils (%) (Auto) 5.3% (0-5) Basophils (%) (Auto) 0.5% (0-3) Prothrombin Time 14.3sec (8.1-12.5) Prothromb Time International Ratio 1.33ratio Sodium Level 138mEq/L (134-144) Potassium Level 4.9mEq/L (3.5-5.2) Chloride Level 98mEq/L (97-108) Carbon Dioxide Level 28mmol/L (18-29) Blood Urea Nitrogen 20mg/dL (8-27) Creatinine 1.01mg/dL (0.57-1.00) Estimat Glomerular Filtration Rate 76mL/min (>59) Glucose Level 167mg/dL (60-99) Calcium Level 9.3mg/dL (8.5-10.1) Magnesium Level 1.7mg/dL (1.6-2.6) Total Bilirubin 0.2mg/dL (0.0-1.2) Aspartate Amino Transf (AST/SGOT) 100U/L (0-50) Alanine Aminotransferase (ALT/SGPT) 64U/L (0-32) Alkaline Phosphatase 165U/L (25-165) Total Protein 6.2g/dL (6.4-8.4) Albumin 3.2g/dL (3.4-5.0) Microbiology Results Name: CHUCK POP Age/Sex: 76/F Attend Dr: Nikki Gonzalez MD Acct: [id number] Unit: [id number] Status: ADM IN Location: [place] [address] Re09/01/16 Disch: Specimen: [id number] Collected: 09/01/16 Status: COMP Req#: [id number] Received: 09/01/16 Source: URINE CC Sp Desc : JT Islas Dr: Arcelia Starkey Ordered: URINE CULT Procedure Result Verified Site Microbiology ERVIN CULT URINE Final 09/03/16-825 Organism 1 ESCHERICHIA COLI U COLONY COUNT/QUANTITY >100,000 CFU/ml Cefazolin-predicts results for the oral agents, cefaclor,cefdinir, cefpodoximen, cefprozil, cefuroximne axetil, cephalexin and loracarbed when used for therapy of uncomplicated UTI's due to E. coli, K. pneumoniae, and Proteus mirabilis. Cefpodoxime, cefdinir and cefuroxime axetil may be tested individually because some isolates may be susceptible to these agents while testing resistant to cefazolin. (CLSI Q351-I77 pg 53) 1. ESCHERICHIA COLI M.I.C Interp --------- ------ * AMOXICILLIN/CLAVULATE <=2 S * AMPICILLIN <=2 S * CEFAZOLIN (CEPHALOSPORIN) UTI 4 S * CEFEPIME <=1 S * CEFTRIAXONE <=1 S * CEFUROXIME SODIUM 4 S * CIPROFLOXACIN >=4 R * ERTAPENEM <=0.5 S * GENTAMICIN <=1 S * IMIPENEM <=1 S * LEVOFLOXACIN >=8 R * NITROFURANTOIN 256 R * TETRACYCLINE <=1 S * TOBRAMYCIN <=1 S * TRIMETHOPRIM/SULFAMETHOXAZOLE <=20 S Discharge Medications Discharge Medications Allopurinol (Allopurinol) 100 Mg Tablet 100 MG PO QAM (Reported) Armodafinil (Nuvigil) 250 Mg Tablet 250 MG PO DAILY (Reported) Carvedilol (Carvedilol) 6.25 Mg Tablet 6.25 MG PO BID (Reported) Cefuroxime Axetil (Cefuroxime) 500 Mg Tablet 500 MG PO BID Prescribed by: FLACO ZUNIGA MD Docusate Sodium (Docusate Sodium) 250 Mg Capsule 250 MG PO HS (Reported) Fluoxetine (Fluoxetine) 40 Mg Capsule 40 MG PO DAILY (Reported) Fluticasone Propionate (Flovent Diskus) 100 Mcg Disk.w.dev 1 PUFF INHALATION BID Prescribed by: FLACO ZUNIGA MD Gabapentin (Neurontin) 300 Mg Capsule 300 MG PO HS Prescribed by: FLACO ZUNIGA MD Insulin Aspart (NovoLOG U-100 Pen) 100 Unit/Ml Insuln.pen SUBQ TIDAC (Reported) use per sliding scale Insulin Glargine (Lantus U100 Insulin Vial) 100 Unit/Ml Vial 36 UNIT SUBQ HS ( Reported) Loteprednol Etabonate (Lotemax) 5 Ml Drops.susp 1 DROP LEFT_EYE TID (Reported) Omeprazole (Omeprazole) 20 Mg Capsule.dr 20 MG PO QAM (Reported) Oxybutynin Chloride ER (Oxybutynin Chloride ER) 10 Mg Tab.er.24 10 MG PO DAILY ( Reported) Pravastatin (Pravastatin) 40 Mg Tablet 40 MG PO QAM (Reported) Venlafaxine ER (Effexor XR) 150 Mg Cap.er.24h 150 MG PO QAM (Reported) Warfarin Sodium (Warfarin Sodium) 5 Mg Tablet 5 MG PO Mon, Wed, Fri, Sat ( Reported) Warfarin Sodium (Warfarin Sodium) 5 Mg Tablet 7.5 MG PO Fri, Fri, ( Reported) Followup Plan Disposition: Patient is being discharged home today. Discharge Diet: Heart Healthy Discharge Activity: Other (No driving or operating any heavy equipment due to Narcolepsy.) Follow-up Provider: Jorge A Cordero MD Follow-up with PCP in: 1 week Time spent Time spent on discharging this patient was greater than 35 minutes, over half of which was involved in counseling and coordination of care. Gato Zuniga MD Sep 07, 2016 01:13
== END 2016-09-06 12:50 | disposition home or self-care (01) | DRG 603 ==
LOC: SED 13:05 → MOC 15:53
PROVIDERS: ADMIT Internal Medicine; ATTEND Internal Medicine
DX: L03.115 Cellulitis of right lower limb (principal); N17.9 Acute kidney failure, unspecified; N39.0 Urinary tract infection, site not specified; I69.954 Hemiplegia and hemiparesis following unspecified cerebrovascular disease affecting left non-dominant side; I25.5 Ischemic cardiomyopathy; E11.9 Type 2 diabetes mellitus without complications; I25.10 Atherosclerotic heart disease of native coronary artery without angina pectoris; M10.9 Gout, unspecified; J44.9 Chronic obstructive pulmonary disease, unspecified; E78.5 Hyperlipidemia, unspecified; N39.46 Mixed incontinence; I48.91 Unspecified atrial fibrillation; B96.20 Unspecified Escherichia coli [E. coli] as the cause of diseases classified elsewhere; I25.2 Old myocardial infarction; Z91.81 History of falling; Z79.4 Long term (current) use of insulin; Z88.0 Allergy status to penicillin; Z91.19 Patient's noncompliance with other medical treatment and regimen; Z95.0 Presence of cardiac pacemaker; Z79.01 Long term (current) use of anticoagulants

== ENCOUNTER 2016-10-26 20:49 | Emergency (ER) | payer MEDICARE, MEDICAID ==
[~2016-10-26] VITALS: Ht 149.9 cm; Wt 59.1 kg
[~2016-10-26 20:49] MED LIST changes: -CALC-762 PO; +CEFU500T61 PO; -CHOL10008 PO; -CIPR-231 PO; -DOXY100C43 PO; +FLUT100D2 INHALATION; -FURO40TA4 PO; +GABA300C PO; -METR500T19 PO; -NITR50CA4 PO; -RAMI2.5C26 PO
[2016-10-26 20:51] VITALS: BP 106/63; PULSE 77; RESP 20; O2SAT 94
[2016-10-26 21:11] LABS: BASOPHILS % (AUTO) 0.2 % (0-3); EOSINOPHILS % (AUTO) 1.6 % (0-5); MONOCYTES % (AUTO) 7.6 % (4-12); Mean Corpuscular Hemoglobin 30.3 pg (27.0-35.0); Mean Corpuscular Volume 91.2 fL (81-100); NEUTROPHILS % (AUTO) 76.4 % (40-74); Platelet Count 196 bil/L (150-400)
[2016-10-26 21:31] LABS: Magnesium 1.8 mg/dL (1.6-2.6)
--- NOTE | 2016-10-26 22:01 | ED.REPORT ---
HPI-Abd Pain F 40 and Over Date of Service Oct 26, 2016 ED Provider: Singh Silverman MD A 76 year old female with a history of type II diabetes mellitus, hypertension, CVA w/ residual left sided weakness, CAD, COPD, A-fib on Coumadin, and gastric AVM presents to the ED via EMS with painful abdominal cramping that began this afternoon. Patient has been reportedly seen in the ED 9 times for identical symptoms. The pain comes intermittently and was brought on by a large BM this afternoon. Her pain is often associated with nausea, vomiting and diarrhea. Nursing Notes Stated Complaint: STOMACH PAIN Chief Complaint: Female Abdominal Pain Nursing Notes Reviewed: Yes Allergies: Coded Allergies: Penicillins (Verified Allergy, Unknown, 10/26/16) Sulfa (Sulfonamide Antibiotics) (Verified Allergy, Unknown, 10/26/16) TAPE (Verified Allergy, Unknown, Fragile skin, 10/26/16) azithromycin (Verified Allergy, Unknown, 10/26/16) meperidine (Verified Allergy, Unknown, 10/26/16) meperidine HCl (Verified Allergy, Unknown, 10/26/16) Scheduled Allopurinol (Allopurinol) 100 Mg Tablet 100 MG PO QAM Armodafinil (Nuvigil) 250 Mg Tablet 250 MG PO DAILY Carvedilol (Carvedilol) 6.25 Mg Tablet 6.25 MG PO BID Cefuroxime Axetil (Cefuroxime) 500 Mg Tablet 500 MG PO BID Docusate Sodium (Docusate Sodium) 250 Mg Capsule 250 MG PO HS Fluoxetine (Fluoxetine) 40 Mg Capsule 40 MG PO DAILY Fluticasone Propionate (Flovent Diskus) 100 Mcg Disk.w.dev 1 PUFF INHALATION BID Gabapentin (Neurontin) 300 Mg Capsule 300 MG PO HS Insulin Aspart (NovoLOG U-100 Pen) 100 Unit/Ml Insuln.pen SUBQ TIDAC use per sliding scale Insulin Glargine (Lantus U100 Insulin Vial) 100 Unit/Ml Vial 36 UNIT SUBQ HS Loteprednol Etabonate (Lotemax) 5 Ml Drops.susp 1 DROP LEFT_EYE TID Omeprazole (Omeprazole) 20 Mg Capsule.dr 20 MG PO QAM Oxybutynin Chloride ER (Oxybutynin Chloride ER) 10 Mg Tab.er.24 10 MG PO DAILY Pravastatin (Pravastatin) 40 Mg Tablet 40 MG PO QAM Venlafaxine ER (Effexor XR) 150 Mg Cap.er.24h 150 MG PO QAM Warfarin Sodium (Warfarin Sodium) 5 Mg Tablet 5 MG PO Mon, Fri, Fri, Sat Warfarin Sodium (Warfarin Sodium) 5 Mg Tablet 7.5 MG PO Fri, Fri, General Time Seen by MD: 22:00 Chief Complaint Abdominal pain Hx Obtained From: Patient Arrived By: Ambulance Sudden in Onset?: No Onset Occurred: 1 - 4 hours ago Symptom Duration: Since onset Progression since Onset: Intermittent Location: : Diffuse Quality: Cramping, Painful Radiation: : Does not radiate Severity: Current: Moderate Severity: Maximum: Moderate Associated with: Reports: Constipation Pertinent Negative: Pt denies other symptoms Recent Healthcare: No recent hospitalization, Recent doctor visit Risk Factors )( AAA Risk Stratification Risk factors reviewed Past Medical History Past Medical History Notes: PCP: Dr. Cordero Past Medical History History of gastric AVM seen on EGD 02/02/13 History of ascending colonic sessile serrated polyp, benign pathology Diabetes mellitus, type 2, insulin using CAD status post stent placement Chronic gastritis CVA with residual left sided weakness Atrial fibrillation on coumadin Hypertension Narcolepsy [place] COPD Depression Anxiety Myocardial infarction Admitted in january with small and large bowel colitis, ecoli UTI. Past Surgical History Hiatal hernia repair Cholecystectomy Hysterectomy Possible appendectomy (patient unsure) Family History Noncontributory Smoking History Former Smoker Social History Alcohol Use: "Social" Drug Use: Denies drug use Other Social History: Lives alone, Local resident Occupation lives at [employer] 09/01/2016 Ambulatory Status Walker Review of Systems Constitutional: Denies: Chills, Fever GI: Reports: Abdominal pain, Constipation, Denies: Nausea, Vomiting Complete sys rev & neg: except as marked. Physical Exam Vital Signs Vital Signs (First) Date Time Temp Pulse Resp B/P Pulse Ox O2 Delivery O2 Flow Rate FiO2 10/26/16 20:51 36.3 77 20 106/63 94 10/26/16 23:10 Nasal Cannula 2 Initial VS: Reviewed, Vital signs normal Head / Eyes: Atraumatic, Normocephalic, PERRL Neck: Supple, Non-tender, Full range of motion Extremities: Vascular intact, Neuro intact, No swelling, No tenderness Skin: Warm, Dry, No cyanosis Neurologic: Alert, Oriented, Nonfocal Psychiatric: Mood/affect normal, Behavior normal, Normal thought content General/Constitutional: Awake, Alert, No acute distress Respiratory / Chest: Atraumatic, Breath sounds NL, Breath sounds = bilat, No respiratory distress Cardiovascular: Heart rate NL, Regular rhythm, Heart sounds NL Abdomen: Atraumatic, Soft Tenderness/Guarding/Rebound: Positive: Tender diffuse Bowel Sounds / Distention: Positive: Bowel sounds tympanitic, Distention mild ( Firm ) Back: Atraumatic, Inspection NL Interpretation & Diagnostics Lab Results Interpretation Result Diagram: 10/26/16205710/26/162057 Test 10/26/16 20:58 White Blood Count 14.7th/mm3 (3.8-10.1) Red Blood Count 4.78mil/mm3 (3.90-5.20) Hemoglobin 14.5g/dL (12.0-15.6) Hematocrit 43.6% (35.0-46.0) Mean Corpuscular Volume 91.2fL (81-100) Mean Corpuscular Hemoglobin 30.3pg (27.0-35.0) Mean Corpuscular Hemoglobin Concent 33.3% (32.0-37.0) Red Cell Distribution Width 12.9% (12.3-15.4) Platelet Count 196bil/L (150-400) Neutrophils (%) (Auto) 76.4% (40-74) Lymphocytes (%) (Auto) 13.7% (14-46) Monocytes (%) (Auto) 7.6% (4-12) Eosinophils (%) (Auto) 1.6% (0-5) Basophils (%) (Auto) 0.2% (0-3) Hold Purple Top Tube Received (Received) Prothrombin Time 22.9sec (8.1-12.5) Prothromb Time International Ratio 2.11ratio Hold Blue Top Tube Received (Received) Sodium Level 133mEq/L (134-144) Potassium Level 4.4mEq/L (3.5-5.2) Chloride Level 90mEq/L (97-108) Carbon Dioxide Level 25mmol/L (18-29) Blood Urea Nitrogen 32mg/dL (8-27) Creatinine 1.49mg/dL (0.57-1.00) Estimat Glomerular Filtration Rate 49mL/min (>59) Glucose Level 304mg/dL (60-99) Calcium Level 9.6mg/dL (8.5-10.1) Magnesium Level 1.8mg/dL (1.6-2.6) Total Bilirubin 0.5mg/dL (0.0-1.2) Aspartate Amino Transf (AST/SGOT) 28U/L (0-50) Alanine Aminotransferase (ALT/SGPT) 17U/L (0-32) Alkaline Phosphatase 150U/L (25-165) Total Protein 8.0g/dL (6.4-8.4) Albumin 4.1g/dL (3.4-5.0) Lipase 60U/L (13-60) Hold Red Top Tube Received (Received) Hold [place] Top Tube Received (Received) Lab Results Interpretation: Elevated white blood count, elevated nonfasting glucose, elevated BUN/creatinine CT Abd / Pelvis Interpretation IMPRESSION: No small bowel obstruction Appendix not identified. Scattered diverticulosis with no evidence of diverticulitis s/p cholecysectomy s/p hysterectomy Study type: Abdominal CT IV contrast, Abdom CT oral contrast Interpretation / Wet Read by: Interpret - Radiologist Re-Eval/Medical Decision Med Decision/Clinical Course 76-year-old female with abdominal pain which is now resolved. She gets episodes like this. She has never had a diagnosis small bowel obstruction. Her pain of several hours is now gone. Her labs were all unremarkable. I suspect that she is having intermittent small bowel obstructions which resolved spontaneously. She is being discharged home after hydration with instructions to continue to take larger amounts of fluids. Re-Evaluation/Progress #1: Time of Eval: 23:56 Re-Evaluation/Progress Note: Pain has completely resolved but she feels mildly dehydrated. Patient is informed of her lab results and reassuring CT. Re-Evaluation/Progress #2: Time of Eval: 01:47 Patient Status: Condition improved Re-Evaluation/Progress Note: Patient is rechecked. Her symptoms have improved and she is agreeable to discharge at this time. Counseled Regarding: Diagnosis, Lab results, Need for follow-up, When/why to return to ED Discharge & Departure Primary Impression: Abdominal pain Abdominal location: generalized Qualified Code: R10.84 - Generalized abdominal pain Additional Impression: Dehydration Disposition: Home Discharge Condition All VS Reviewed: Yes Condition: Improved Patient Instructions: Acute Abdominal Pain (ED), Dehydration (ED) Additional Instructions: Your abdominal pain might of been from a partial small bowel obstruction which has now resolved. There is no reason to do a scan at this time since the pain is completely gone. Your lab show some evidence of dehydration. Your urine saline in the IV with improvement. Continue increased fluids at home. Return if you have further problems. Referrals: Jorge A Cordero MD (PCP) Scribe Attestation Portions of this note were transcribed by Mckenzie Henderson. I, Dr. Silverman personally performed the history, physical exam and medical decision-making; I reviewed and confirmed the accuracy of the information in the transcribed note. Signed by: Arnel Nelson, 10/27/16 0150. copies to: Jorge A Cordero MD, Howard L MD Oct 26, 2016 22:01 MCKENZIE HENDERSON Oct 26, 2016 22:07
[2016-10-26] MEDS ORDERED: Ondansetron 2 mg/mL 2 mL Inj IVPUSH PRN (22:10)
[2016-10-26] MEDS ORDERED: HYDROmorphone 0.5 mg/0.5 mL iSecure Syringe IVPUSH PRN (22:10)
[2016-10-26] MEDS ORDERED: 0.9% Sodium Chloride 500 ML IV ONE (22:10)
[2016-10-26] MEDS ORDERED: Iohexol 300 mg/mL 30 mL Inj PO ONE (22:15)
[2016-10-26 23:10] VITALS: BP 105/76; PULSE 77; O2SAT 92
[2016-10-27] MEDS ORDERED: Insulin GLARgine 100 Unit/mL Syringe SUBQ ONE (00:20)
[2016-10-27] MEDS ORDERED: Insulin Human REGular-Omnicell 100 Unit/mL SUBQ ONE (00:20)
[2016-10-27] MEDS ORDERED: 0.9% Sodium Chloride 1,000 ML IV ONE (00:20)
[2016-10-27 00:35] LABS: INR 2.11 ratio
[2016-10-27 02:25] VITALS: BP 111/59; PULSE 84; RESP 16; O2SAT 95
--- NOTE | 2016-10-27 08:59 | DRSVH ---
PROCEDURE: CT ABDOMEN AND PELVIS WITHOUT CONTRAST ([id number]) INDICATIONS: abd apin and distention TECHNIQUE: After the administration of oral contrast, 5 mm thick sections acquired from the diaphragms to the sy mphysis. 5 mm coronal and sagittal reformats were performed. For radiation dose reduction, the foll owing was used: automated exposure control, adjustment of mA and/or kV according to patient size. COMPARISON: [facility], CR, ABD W/ERECT +/OR DECB, 12/20/2012, 2:07. [facility] [place], CT, ABD/PELVIS W/CON (PNL), 01/28/2013, 15:08. [facility], CT, CT ABD PELVIS W CON, 02/08/2015, 15:52. [facility], CT, CT ABD PELVIS W CON, 07/14/2016, 19:02. [facility], CR, XR ABD ACUTE SERIES 3VW, 12/31/2015, 17:31. FINDINGS: Image quality: Somewhat diminished by absence of intravenous contrast due to low renal function test s, but oral contrast was utilized. ABDOMEN: Lung bases: Lung bases are clear. Heart size is normal. Solid organs: Liver and spleen are normal in size. Gallbladder appears surgically resected. Pancre as is normal in size. No change in the left adrenal nodule, present on multiple prior CT scans and s mall in size. Both kidneys are normal in size, without hydronephrosis or nephrolithiasis. The scatt ered bilateral renal cortical cysts better visualized by contrast enhanced scanning 07/14/16 are again noted. Peritoneum and bowel: Bowel loops demonstrate normal wall thickness and caliber. No free fluid or a ir. Nodes and vessels: No retroperitoneal or mesenteric adenopathy by size criteria. Aorta and inferior vena cava are normal in size. Miscellaneous: No ventral hernias. PELVIS: Genitourinary: Bladder wall thickness is normal. Below the expected position of the bladder, adjace nt to the expected course of the distal urethra, there is an ovoid calcification that measures up to 2.2 cm transverse and 1.1 cm in maximal AP dimension, and 1.3 cm craniocaudad. The finding has been present, slowly increasing in size, on multiple prior plain film and CT studies. It has an internal radiodensity of 820 Hounsfield units. Miscellaneous: No inguinal hernias or adenopathy. Bones: No suspicious bony lesions. No vertebral body compression fractures. IMPRESSION: 1. A definite source of abdominal pain and distention is not seen. 2. Prior cholecystectomy, stable appearance of a small benign-appearing left adrenal nodule present on multiple prior studies. 3. No hydronephrosis or nephrolithiasis but there is a slowly enlarging dense calcification adjacent to the expected course of the distal urethra. 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 It can be seen in retrospect on the earliest available CT scan from 01/28/13, and has s equentially increased in size over time but without adjacent associated inflammation. Urology consul tation appears warranted. 4. Scattered bilateral small renal cortical cysts, better visualized by contrast enhanced abdomen/pe lvis CT scanning earlier this year. No renal inflammation suspected. Dictated by: Mo Magallanes M.D. on 10/27/2016 at 8:46 Approved by: Mo Magallanes M.D. on 10/27/2016 at 8:57
== END 2016-10-27 02:26 | disposition home or self-care (01) ==
LOC: SED 20:49 → EDBD 20:49 → SED 10-27 02:26
DX: R10.84 Generalized abdominal pain (principal); E86.0 Dehydration; R11.2 Nausea with vomiting, unspecified; R19.7 Diarrhea, unspecified; E11.9 Type 2 diabetes mellitus without complications; I10 Essential (primary) hypertension; I25.10 Atherosclerotic heart disease of native coronary artery without angina pectoris; J44.9 Chronic obstructive pulmonary disease, unspecified; Z86.73 Personal history of transient ischemic attack (TIA), and cerebral infarction without residual deficits; Z79.01 Long term (current) use of anticoagulants; Z79.4 Long term (current) use of insulin; Z87.891 Personal history of nicotine dependence; Z88.0 Allergy status to penicillin; Z88.2 Allergy status to sulfonamides; Z88.1 Allergy status to other antibiotic agents; Z88.8 Allergy status to other drugs, medicaments and biological substances
CPT/HCPCS: 36415; 74176; 80053; 82948; 83690; 83735; 85025; 85610; 96361; 96372; 96374; 96375; 99285; J1170; J1815; J2405; J7030; J7040

== ENCOUNTER 2016-11-18 11:50 | Emergency (ER) | payer MEDICARE, MEDICAID ==
[2016-11-18 11:57] VITALS: BP 140/71; PULSE 84; RESP 16; O2SAT 95
[2016-11-18 12:19] LABS: BASOPHILS % (AUTO) 0.2 % (0-3); EOSINOPHILS % (AUTO) 3.2 % (0-5); MONOCYTES % (AUTO) 7.3 % (4-12); Mean Corpuscular Hemoglobin 30.7 pg (27.0-35.0); Mean Corpuscular Volume 90.8 fL (81-100); NEUTROPHILS % (AUTO) 71.9 % (40-74); Platelet Count 188 bil/L (150-400)
[2016-11-18 12:39] LABS: INR 1.21 ratio
--- NOTE | 2016-11-18 12:44 | DRSVH ---
PROCEDURE: CT BRAIN WITHOUT CONTRAST ([id number]) INDICATIONS: GLF, hit occiput and on coumadin TECHNIQUE: Noncontrast 4.5 mm thick angled axial sections acquired from the foramen magnum to the vertex, with c oronal reformats. COMPARISON: [facility], CT, CT ABD PELVIS WO CON, 10/26/2016, 23:40. FINDINGS: Image quality: Excellent. CSF spaces: Basal cisterns are patent. No extra-axial fluid collections. Ventricles are normal in size and shape. Brain: There is a lentiform extra-axial hyperdense mass overlying the right frontoparietal lobe (se 5 im 25) measuring 17 x 5 mm. No acute masses, infarction, midline shift or hydrocephalus. Skull and face: Calvarium and visualized facial bones are intact, without suspicious lesions. Poste rior lateral soft tissue contusion overlying the site of hemorrhage. Sinuses: Visualized sinuses and mastoids are clear. IMPRESSION: 1. Extra-axial blood overlying the posterior right frontal lobe most consistent with epidural hemorrh age. Subdural hemorrhage is less likely given the lentiform shape. 2. Findings discussed by telephone ([phone]) with Dr. Alegria on 11/18/2016 at 12: 40 PM. Dictated by: Khurram Hercules M.D. on 11/18/2016 at 12:34 Approved by: Khurram Hercules M.D. on 11/18/2016 at 12:42
[2016-11-18] MEDS ORDERED: TdaP Vaccine 0.5 mL Inj IM ONE (12:45)
[2016-11-18] MEDS ORDERED: Phytonadione (Adult) 10 MG in Dextrose 5%-Pha MIX 50 ML IV ONE (12:50)
--- NOTE | 2016-11-18 13:07 | ED.REPORT ---
HPI-Trauma Minor / Fall Date of Service Nov 18, 2016 ED Provider: Clay Lyn MD The pt is a 76 y/o female w/ a hx of diabetes presenting to the ED via EMS due to a fall. She fell backward in the parking lot, hit her head and there was a "probable" loss of consciousness per EMS. She denies having any numbness or weakness in her arms. Nursing Notes Stated Complaint: GROUND LEVEL FALL Chief Complaint: Head, Face, Neck Trauma Nursing Notes Reviewed: Yes (stiQRd, TakWak not reconciled) Allergies: Coded Allergies: Penicillins (Verified Allergy, Unknown, 11/18/16) Sulfa (Sulfonamide Antibiotics) (Verified Allergy, Unknown, 11/18/16) TAPE (Verified Allergy, Unknown, Fragile skin, 11/18/16) azithromycin (Verified Allergy, Unknown, 11/18/16) meperidine (Verified Allergy, Unknown, 11/18/16) meperidine HCl (Verified Allergy, Unknown, 11/18/16) Scheduled Allopurinol (Allopurinol) 100 Mg Tablet 100 MG PO QAM Armodafinil (Nuvigil) 250 Mg Tablet 250 MG PO DAILY Carvedilol (Carvedilol) 6.25 Mg Tablet 6.25 MG PO BID Cefuroxime Axetil (Cefuroxime) 500 Mg Tablet 500 MG PO BID Docusate Sodium (Docusate Sodium) 250 Mg Capsule 250 MG PO HS Fluoxetine (Fluoxetine) 40 Mg Capsule 40 MG PO DAILY Fluticasone Propionate (Flovent Diskus) 100 Mcg Disk.w.dev 1 PUFF INHALATION BID Gabapentin (Neurontin) 300 Mg Capsule 300 MG PO HS Insulin Aspart (NovoLOG U-100 Pen) 100 Unit/Ml Insuln.pen SUBQ TIDAC use per sliding scale Insulin Glargine (Lantus U100 Insulin Vial) 100 Unit/Ml Vial 36 UNIT SUBQ HS Loteprednol Etabonate (Lotemax) 5 Ml Drops.susp 1 DROP LEFT_EYE TID Omeprazole (Omeprazole) 20 Mg Capsule.dr 20 MG PO QAM Oxybutynin Chloride ER (Oxybutynin Chloride ER) 10 Mg Tab.er.24 10 MG PO DAILY Pravastatin (Pravastatin) 40 Mg Tablet 40 MG PO QAM Venlafaxine ER (Effexor XR) 150 Mg Cap.er.24h 150 MG PO QAM Warfarin Sodium (Warfarin Sodium) 5 Mg Tablet 5 MG PO Mon, Wed, Fri, Sat Warfarin Sodium (Warfarin Sodium) 5 Mg Tablet 7.5 MG PO Fri, Fri, General Time Seen by MD: 12:00 Chief Complaint Fall Hx Obtained From: Patient, EMS Arrived By: Ambulance Onset Occurred: Just prior to arrival Recent Healthcare: No recent doctor visit, No recent hospitalization Past Medical History Past Medical History Notes: PCP: Dr. Cordero Last admission August 2016 cellulitis right lower extremity cellulitis Past Medical History History of gastric AVM seen on EGD 02/02/13 History of ascending colonic sessile serrated polyp, benign pathology Diabetes mellitus, type 2, insulin using CAD status post stent placement Chronic gastritis CVA with residual left sided weakness Atrial fibrillation on coumadin Hypertension Narcolepsy [place] COPD Depression Anxiety Myocardial infarction Admitted in january with small and large bowel colitis, ecoli UTI. Past Surgical History Hiatal hernia repair Cholecystectomy Hysterectomy Possible appendectomy (patient unsure) Pacemaker Family History Noncontributory Smoking History Former Smoker (quit a few months ago) Social History Alcohol Use: "Social" Drug Use: Denies drug use Other Social History: Lives alone, Local resident Occupation lives at [employer] 09/01/2016 Ambulatory Status Walker Review of Systems Laceration to back of head Constitutional: Denies: Chills, Fever Complete sys rev & neg: except as marked. Physical Exam Initial Vital Signs Vital Signs (First) Date Time Temp Pulse Resp B/P Pulse Ox O2 Delivery O2 Flow Rate FiO2 11/18/16 11:57 36.1 84 16 140/71 95 Room Air Initial VS: Reviewed, Vital signs normal General/Constitutional: Awake, Alert Appearance / Presentation: Positive: Obese Neck: Atraumatic, No masses Head / Eyes: Normocephalic, No photophobia Posterior scalp laceration not fully visualized due to initial injury No hemorhage Periorbital ecchymosis in R eye ENT: Atraumatic, Airway patent, Mucous membranes moist Respiratory / Chest: Atraumatic, Breath sounds NL, Breath sounds = bilat Cardiovascular: Heart rate NL, Regular rhythm, Heart sounds NL Abdomen: Atraumatic, Soft, Non-tender Skin: Color NL, No rash, Warm, Dry Neurologic: Speech NL, CN II - XII intact Mild confusion, does not know date Thought to be baseline No innapropiate drowsiness No focal deficits Psychiatric: Affect NL, Mood NL Interpretation & Diagnostics Lab Results Interpretation Result Diagram: 11/18/16 1210 11/18/16 1210 Test 11/18/16 12:10 11/18/16 12:50 White Blood Count 8.3th/mm3 (3.8-10.1) Red Blood Count 4.24mil/mm3 (3.90-5.20) Hemoglobin 13.0g/dL (12.0-15.6) Hematocrit 38.5% (35.0-46.0) Mean Corpuscular Volume 90.8fL (81-100) Mean Corpuscular Hemoglobin 30.7pg (27.0-35.0) Mean Corpuscular Hemoglobin Concent 33.8% (32.0-37.0) Red Cell Distribution Width 12.8% (12.3-15.4) Platelet Count 188bil/L (150-400) Neutrophils (%) (Auto) 71.9% (40-74) Lymphocytes (%) (Auto) 17.0% (14-46) Monocytes (%) (Auto) 7.3% (4-12) Eosinophils (%) (Auto) 3.2% (0-5) Basophils (%) (Auto) 0.2% (0-3) Prothrombin Time 13.0sec (8.1-12.5) Prothromb Time International Ratio 1.21ratio Sodium Level 137mEq/L (134-144) Potassium Level 4.5mEq/L (3.5-5.2) Chloride Level 97mEq/L (97-108) Carbon Dioxide Level 24mmol/L (18-29) Blood Urea Nitrogen 25mg/dL (8-27) Creatinine 0.95mg/dL (0.57-1.00) Estimat Glomerular Filtration Rate 82mL/min (>59) Glucose Level 233mg/dL (60-99) Calcium Level 9.5mg/dL (8.5-10.1) Total Bilirubin 0.2mg/dL (0.0-1.2) Aspartate Amino Transf (AST/SGOT) 22U/L (0-50) Alanine Aminotransferase (ALT/SGPT) 18U/L (0-32) Alkaline Phosphatase 125U/L (25-165) Total Protein 6.8g/dL (6.4-8.4) Albumin 3.7g/dL (3.4-5.0) Hold [place] Top Tube Received (Received) Hold Purple Top Tube Received (Received) Hold Blue Top Tube Received (Received) Hold [place] Top Tube Received (Received) Lab Results Interpretation: CBC nl CMP nl INR subtherapeutic ECG Interpretation ECG Interpretation: Atrial ventricular paced rhythm Time: 13:00 Interpreted by: ED physician CT Head Interpretation IMPRESSION: 1. Extra-axial blood overlying the posterior right frontal lobe most consistent with epidural hemorrhage. Subdural hemorrhage is less likely given the lentiform shape. 2. Findings discussed by telephone ([phone]) with Dr. Alegria on 11/18/2016 at 12: 40 PM. Dictated by: Khurram Hercules M.D. on 11/18/2016 at 12:34 Approved by: Khurram Hercules M.D. on 11/18/2016 at 12:42 Study: Head CT no contrast Interpretation / Wet Read by: Interpret - Radiologist CT C-Spine Interpretation IMPRESSION: 1. No acute fracture of the cervical spine. 2. Osteopenia and moderate degenerative changes of the cervical spine. Dictated by: Avni Keene M.D. on 11/18/2016 at 12:28 Approved by: Avni Keene M.D. on 11/18/2016 at 12:35 Study type: CT no contrast Interpretation / Wet Read by: Interpret - Radiologist Re-Eval/Medical Decision Med Decision/Clinical Course This is a 76-year-old female with atrial fibrillation on warfarin who suffered a fall and hit the back of her head. She reports she has poor balance, or a walker or wheelchair-lewis is brought in by EMS. Apparently she tripped in the parking lot, she does not remember the full details and thinks their may have been a brief LOC, and has mild/trace confusion-which is reportedly at baseline. She reports a trace headache, denies any numbness or weakness. She had a scalp laceration of the posterior occiput. She denies neck pain. She denies chest pain, shortness of breath, syncope. Not recall last tetanus status. She does not recall last INR check on her warfarin. On exam she has a gross blood around the back of her head, and a posterior laceration that was not able to be fully explored. It is not actively hemorrhaging. Lungs are clear, heart tones are normal. Abdomen is obese. On exam she is awake, interactive and appropriate-although has mild confusion, she can name her birthday, but not today's date. She states as normal for her, and this is confirmed with the records. She is managing her airway, has no drowsiness, she does have irregular pupils and appears to be status post surgery on the left eye resultant irregular pupil. The cranial nerve deficits are evident. She has no focal numbness or weakness of the extremities. A noncontrast head CT was read as positive for suspected small area of epidural hemorrhage. A CT C-spine is negative for acute injury EKG demonstrates a paced rhythm. Lab work demonstrates the patient be subtherapeutic on her INR. The CT findings and case was discussed with surgery at [facility], the patient be transferred by airlift. Fortunately patient's subtherapeutic so does not require PCC or FFP, but they recommend going ahead and giving vitamin K 10 mg IV which has been ordered. The patient's uncertain of her last tetanus and is receiving a tetanus update. The plan is transfer via airlift for continued management. Source of Hx: Old records, EMS Consultation : Referral / Consult Name: [facility] Call Returned at: 12:49 Note: Airlift will take pt. Counseled Regarding: Diagnosis, Lab results, Need for admission Discharge & Departure Impression: Primary Impression: Epidural hemorrhage Additional Impressions: Scalp laceration Anticoagulated on Coumadin Subtherapeutic international normalized ratio (INR) Fall from ground level Discharge Condition All VS Reviewed: Yes Condition: Stable Referrals: Jorge A Cordero MD (PCP) Crit Care Except Billable Proc Time Spent: 30-74 minutes Services Performed: Patient management by me, Time spent at bedside, Reviewing test results, Reviewing imaging, Discussing patient care, Documentation in record Scribe Attestation Portions of this note were transcribed by Acosta Smith. I, Dr. Lyn personally performed the history, physical exam and medical decision-making; I reviewed and confirmed the accuracy of the information in the transcribed note. Signed by : Arnel Doshi, 11/18/16 and 1148. copies to: Jorge A Cordero MD, Matthew F MD Nov 18, 2016 13:07 Acosta Smith Nov 18, 2016 13:31
[2016-11-18 13:08] VITALS: BP 104/72; PULSE 81; RESP 17; O2SAT 95
--- NOTE | 2016-11-18 13:37 | DRSVH ---
PROCEDURE: CT CERVICAL SPINE WITHOUT CONTRAST ([id number]) INDICATIONS: fall trauma TECHNIQUE: Noncontrast 3 mm thick sections acquired from the skull base to the T4 level. Sagittal and coronal r eformats were then constructed. For radiation dose reduction, the following was used: automated exp osure control, adjustment of mA and/or kV according to patient size. COMPARISON: None. FINDINGS: Image quality: Diagnostic. Bones: The craniocervical and atlantoaxial joints are well-maintained. The odontoid is intact. The vertebral body heights and prevertebral soft tissues are within normal limits throughout the cervical spine without evidence to suggest acute compression fracture. No other fractures are evident within the cervical spine. The bone mineralization is diffusely decreased. Moderate multilevel degenerative changes of the cervical spine are identified, primarily involving th e upper to mid cervical facet joints. Intervertebral disc heights are relatively well-maintained. T here is levoconvex curvature of the upper thoracic spine. Grade 1 anterolisthesis of C4 on C5 is inc identally noted. Otherwise, the alignment of the cervicothoracic spine is within normal limits. Soft tissues: No prevertebral soft tissue swelling. The imaged lung apices are clear. However, the re appears to be scarring within the bilateral lung apices. Imaged portions of the mediastinum are un remarkable. Otherwise, the remainder of the imaged soft tissues of the neck are within normal limits . IMPRESSION: 1. No acute fracture of the cervical spine. 2. Osteopenia and moderate degenerative changes of the cervical spine. Dictated by: Avni Keene M.D. on 11/18/2016 at 12:28 Approved by: Avni Keene M.D. on 11/18/2016 at 12:35
== END 2016-11-18 13:46 | disposition short-term general hospital (02) ==
LOC: SED 11:50
DX: S06.4X0A Epidural hemorrhage without loss of consciousness, initial encounter (principal); S01.01XA Laceration without foreign body of scalp, initial encounter; R79.1 Abnormal coagulation profile; W01.198A Fall on same level from slipping, tripping and stumbling with subsequent striking against other object, initial encounter; Y93.9 Activity, unspecified; Y92.481 Parking lot as the place of occurrence of the external cause; Y99.8 Other external cause status; I25.2 Old myocardial infarction; I10 Essential (primary) hypertension; E11.9 Type 2 diabetes mellitus without complications; I25.10 Atherosclerotic heart disease of native coronary artery without angina pectoris; Z90.710 Acquired absence of both cervix and uterus; Z95.0 Presence of cardiac pacemaker; Z87.891 Personal history of nicotine dependence; Z79.4 Long term (current) use of insulin; Z79.01 Long term (current) use of anticoagulants; Z79.899 Other long term (current) drug therapy; Z88.0 Allergy status to penicillin; Z88.1 Allergy status to other antibiotic agents; Z88.2 Allergy status to sulfonamides; Z88.8 Allergy status to other drugs, medicaments and biological substances; Z23 Encounter for immunization
CPT/HCPCS: 36415; 70450; 72125; 80053; 85025; 85610; 90471; 90715; 93005; 99291; J3430

== ENCOUNTER 2016-11-30 16:28 | Inpatient (IN) | payer MEDICARE, MEDICAID ==
[~2016-11-30] VITALS: Ht 152.4 cm; Wt 80.8 kg
[2016-11-30 16:47] VITALS: BP 108/66; PULSE 86; RESP 19; O2SAT 90
--- NOTE | 2016-11-30 16:58 | ED.REPORT ---
HPI-Abd Pain F 40 and Over Date of Service Nov 30, 2016 ED Provider: Sohail Pereira DO The patient is a 76 year old female with history of gastric AVM, diabetes mellitus type II, CAD, COPD, chronic gastritis, prior CVA with residual left- sided weakness, atrial fibrillation on Coumadin, and hypertension, who was brought to the emergency department by EMS for lower abdominal pain that began suddenly just prior to arrival while she was at [facility]. The patient had a large bowel movement earlier today at home. She denies bloody or tarry stools, diarrhea or constipation. She has chronic shortness of breath. She denies fever , chills, chest pain, cough or vomiting. Nursing Notes Stated Complaint: ABDOMINAL PAIN Chief Complaint: General Complaint Nursing Notes Reviewed: Yes Allergies: Coded Allergies: Penicillins (Verified Allergy, Unknown, 11/18/16) Sulfa (Sulfonamide Antibiotics) (Verified Allergy, Unknown, 11/18/16) TAPE (Verified Allergy, Unknown, Fragile skin, 11/18/16) azithromycin (Verified Allergy, Unknown, 11/18/16) meperidine (Verified Allergy, Unknown, 11/18/16) meperidine HCl (Verified Allergy, Unknown, 11/18/16) Scheduled Allopurinol (Allopurinol) 100 Mg Tablet 100 MG PO QAM Armodafinil (Nuvigil) 250 Mg Tablet 250 MG PO DAILY Carvedilol (Carvedilol) 6.25 Mg Tablet 6.25 MG PO BID Cefuroxime Axetil (Cefuroxime) 500 Mg Tablet 500 MG PO BID Docusate Sodium (Docusate Sodium) 250 Mg Capsule 250 MG PO HS Fluoxetine (Fluoxetine) 40 Mg Capsule 40 MG PO DAILY Fluticasone Propionate (Flovent Diskus) 100 Mcg Disk.w.dev 1 PUFF INHALATION BID Gabapentin (Neurontin) 300 Mg Capsule 300 MG PO HS Insulin Aspart (NovoLOG U-100 Pen) 100 Unit/Ml Insuln.pen SUBQ TIDAC use per sliding scale Insulin Glargine (Lantus U100 Insulin Vial) 100 Unit/Ml Vial 36 UNIT SUBQ HS Loteprednol Etabonate (Lotemax) 5 Ml Drops.susp 1 DROP LEFT_EYE TID Omeprazole (Omeprazole) 20 Mg Capsule.dr 20 MG PO QAM Oxybutynin Chloride ER (Oxybutynin Chloride ER) 10 Mg Tab.er.24 10 MG PO DAILY Pravastatin (Pravastatin) 40 Mg Tablet 40 MG PO QAM Venlafaxine ER (Effexor XR) 150 Mg Cap.er.24h 150 MG PO QAM Warfarin Sodium (Warfarin Sodium) 5 Mg Tablet 5 MG PO Mon, Wed, Fri, Sat Warfarin Sodium (Warfarin Sodium) 5 Mg Tablet 7.5 MG PO Sun, e, Thurs General Time Seen by MD: 16:57 Chief Complaint Abdominal pain Hx Obtained From: Patient, EMS Arrived By: Ambulance Sudden in Onset?: Yes Onset Occurred: Just prior to arrival Symptom Duration: Since onset Progression since Onset: Constant Location: : RLQ Quality: Painful Severity: Current: Moderate Severity: Maximum: Severe Pertinent Negative: Pt denies other symptoms Recent Healthcare: No recent hospitalization Similar Sx Previous: No Past Medical History Past Medical History Notes: PCP: Dr. Cordero Past Medical History History of gastric AVM seen on EGD 02/02/13 History of ascending colonic sessile serrated polyp, benign pathology Diabetes mellitus, type 2, insulin using CAD status post stent placement Chronic gastritis CVA with residual left sided weakness Atrial fibrillation on coumadin Hypertension Narcolepsy [place] COPD Depression Anxiety Past Surgical History Hiatal hernia repair Cholecystectomy Hysterectomy Possible appendectomy (patient unsure) Pacemaker Family History Noncontributory Smoking History Former Smoker Social History Alcohol Use: "Social" Drug Use: Denies drug use Other Social History: Lives alone, Local resident Occupation lives at health system 09/01/2016 Ambulatory Status Walker Review of Systems Constitutional: Denies: Chills, Fever Respiratory: Reports: Shortness of breath (chronic), Denies: Non-productive cough Cardiovascular: Denies: Chest pain GI: Reports: Abdominal pain, Denies: Bloody/tarry stool, Constipation, Diarrhea, Hematochezia, Melena, Nausea, Vomiting Complete sys rev & neg: except as marked. Physical Exam Vital Signs Vital Signs (First) Date Time Temp Pulse Resp B/P Pulse Ox O2 Delivery O2 Flow Rate FiO2 11/30/16 16:47 36.9 86 19 108/66 90 Room Air 11/30/16 17:36 2 Initial VS: Reviewed, Vital signs abnormal (borderline hypoxic) Head / Eyes: Atraumatic, Normocephalic, PERRL ENT: Mucous membranes moist, Conjunctiva normal, No scleral icterus Neck: Supple, Non-tender, Full range of motion Lymphatic: No lymphadenopathy Extremities: Vascular intact, Neuro intact, No swelling, No tenderness Skin: Warm, Dry, No cyanosis Neurologic: Alert, Oriented, Nonfocal Psychiatric: Mood/affect normal, Behavior normal, Normal thought content General/Constitutional: Awake, Alert Appearance / Presentation: Positive: Obese Respiratory / Chest: Atraumatic, Breath sounds NL, Breath sounds = bilat, No respiratory distress, No rales, No rhonchi, No wheezing, No stridor Cardiovascular: Heart rate NL, Regular rhythm, Heart sounds NL, No gallop, No murmurs, No rubs, Peripheral circulation NL Abdomen: Soft, McBurney's non-tender, No guarding, No rebound, BS normoactive, No distention, No hernia, No palpable mass, No pulsatile mass Tenderness/Guarding/Rebound: Positive: Tender RLQ... Back: Inspection NL, Non-tender, No CVA tenderness Interpretation & Diagnostics Lab Results Interpretation Result Diagram: 11/30/16 1725 11/30/16 1725 Test 11/30/16 17:25 White Blood Count 12.3th/mm3 (3.8-10.1) Red Blood Count 4.20mil/mm3 (3.90-5.20) Hemoglobin 12.8g/dL (12.0-15.6) Hematocrit 38.3% (35.0-46.0) Mean Corpuscular Volume 91.2fL (81-100) Mean Corpuscular Hemoglobin 30.5pg (27.0-35.0) Mean Corpuscular Hemoglobin Concent 33.4% (32.0-37.0) Red Cell Distribution Width 13.1% (12.3-15.4) Platelet Count 203bil/L (150-400) Neutrophils (%) (Auto) 78.7% (40-74) Lymphocytes (%) (Auto) 11.2% (14-46) Monocytes (%) (Auto) 7.2% (4-12) Eosinophils (%) (Auto) 2.1% (0-5) Basophils (%) (Auto) 0.2% (0-3) Prothrombin Time 10.9sec (8.1-12.5) Prothromb Time International Ratio 1.02ratio Sodium Level 135mEq/L (134-144) Potassium Level 4.7mEq/L (3.5-5.2) Chloride Level 94mEq/L (97-108) Carbon Dioxide Level 23mmol/L (18-29) Blood Urea Nitrogen 27mg/dL (8-27) Creatinine 1.35mg/dL (0.57-1.00) Estimat Glomerular Filtration Rate 54mL/min (>59) Glucose Level 365mg/dL (60-99) Lactic Acid Level 2.4mmol/L (0.4-2.0) Calcium Level 9.3mg/dL (8.5-10.1) Magnesium Level 1.6mg/dL (1.6-2.6) Total Bilirubin 0.4mg/dL (0.0-1.2) Aspartate Amino Transf (AST/SGOT) 27U/L (0-50) Alanine Aminotransferase (ALT/SGPT) 17U/L (0-32) Alkaline Phosphatase 144U/L (25-165) Total Protein 7.2g/dL (6.4-8.4) Albumin 3.7g/dL (3.4-5.0) Lipase 28U/L (13-60) X-Ray Chest Interpretation Chest Xray Interpretation: IMPRESSION: No acute cardiopulmonary findings. Dictated by: Quynh Thomas M.D. on 11/30/2016 at 18:05 Interpretation / Wet Read by: Interpret - Radiologist Re-Eval/Medical Decision Source of Hx: Old records, EMS Counseled Regarding: Diagnosis, Lab results Discharge & Departure Shift Change Sign-Out Patient Care Transferred: Yes Discussed Complaint(s): Yes Laboratory Evaluation: Ordered, not yet done Imaging Studies: Ordered, not yet done Response to Therapy: Discussed Primary Impression: Abdominal pain Abdominal location: lower abdomen, unspecified Qualified Code: R10.30 - Lower abdominal pain, unspecified Discharge Condition All VS Reviewed: Yes Condition: Stable Referrals: Jorge A Cordero MD (PCP) Care Transferred to: Dr. Reese Care Transferred at: 18:01 Scribe Attestation Portions of this note were transcribed by Adeola Tate. I, Dr. Pereira personally performed the history, physical exam and medical decision-making; I reviewed and confirmed the accuracy of the information in the transcribed note. Signed by: Arnel Crooks, 11/30/2016 at 1815. copies to: Jorge A Cordero MD, Timothy S DO Nov 30, 2016 16:58 Adeola Tate Nov 30, 2016 17:06
[2016-11-30] MEDS ORDERED: 0.9% Sodium Chloride 1,000 ML IV ONE ×2 (17:04→19:40)
[2016-11-30] MEDS ORDERED: Ondansetron 2 mg/mL 2 mL Inj IVPUSH PRN ×2 (17:05→21:55)
[2016-11-30 17:36] VITALS: BP 130/64; PULSE 86; RESP 18; O2SAT 98
[2016-11-30 17:42] LABS: BASOPHILS % (AUTO) 0.2 % (0-3); EOSINOPHILS % (AUTO) 2.1 % (0-5); MONOCYTES % (AUTO) 7.2 % (4-12); Mean Corpuscular Hemoglobin 30.5 pg (27.0-35.0); Mean Corpuscular Volume 91.2 fL (81-100); NEUTROPHILS % (AUTO) 78.7 % (40-74); Platelet Count 203 bil/L (150-400)
[2016-11-30 17:48] LABS: INR 1.02 ratio
[2016-11-30 17:55] LABS: Magnesium 1.6 mg/dL (1.6-2.6)
--- NOTE | 2016-11-30 18:08 | DRSVH ---
PROCEDURE: X-RAY CHEST ONE VIEW, PORTABLE ([id number]) INDICATIONS: chronic dyspnea, hypoxia TECHNIQUE: One view of the chest was acquired. COMPARISON: [facility], , CHEST 1VW (PORTABLE), 04/10/2013, 16:38. [facility], CR, CHEST 2VW, 01/25/2013, 22:13. [facility], , XR CHEST 1VW, 07/14/2016, 18:20. FINDINGS: Surgical changes and devices: Left defibrillator is unchanged. Right apical pulmonary radiopacity is unchanged when compared with the study dated 04/10/13 and may represent pulmonary calcification. No a cute airspace opacities. No pleural effusion or pneumothorax. Lungs and pleura: No pleural effusions or pneumothorax. Lungs are clear. Mediastinum: Mediastinal contours appear normal. Heart size is normal. Bones and chest wall: No suspicious bony lesions. Overlying soft tissues appear unremarkable. IMPRESSION: No acute cardiopulmonary findings. Dictated by: Quynh Thomas M.D. on 11/30/2016 at 18:05 Approved by: Quynh Thomas M.D. on 11/30/2016 at 18:06
[2016-11-30 19:21] LABS: APPEARANCE,URINE HAZY (CLEAR,HAZY); COLOR,URINE YELLOW (YELLOW); OCCULT BLOOD,URINE NEGATIVE (NEGATIVE); UROBILINOGEN,URINE NORMAL (NORMAL)
--- NOTE | 2016-11-30 19:36 | DRSVH ---
PROCEDURE: CT ABDOMEN AND PELVIS WITH CONTRAST ([id number]) INDICATIONS: RLQ pain TECHNIQUE: After the administration of intravenous contrast, 5 mm thick sections acquired from the diaphragm to the symphysis. 5 mm coronal and sagittal reformats were acquired. For radiation dose reduction, the following was used: automated exposure control, adjustment of mA and/or kV according to patient siz e. COMPARISON: [facility], CR, CHEST 1VW (PORTABLE), 04/10/2013, 16:38. [facility], CR, CHEST 2VW, 01/25/2013, 22:13. [facility], CT, ABD/PELVIS W/CON (PNL), 01/28/2013 , 15:08. [facility], CT, CT ABD PELVIS WO CON, 10/26/2016, 23:40. FINDINGS: Image quality: Excellent. ABDOMEN: Lung bases: Lung bases are clear. Heart size is normal. Solid organs: Liver and spleen are normal in size and enhancement. Gallbladder is surgically absent . Biliary system is non dilated. Pancreas enhances normally. No right-sided adrenal nodules. Left adrenal gland nodule is redemonstrated and likely represents an adenoma. The kidneys demonstrate norm al size. As before, there are innumerable bilateral exophytic low density cystic lesions. No hydronep hrosis there is no hydroureter. Peritoneum and bowel: Bowel loops demonstrate normal wall thickness and caliber. There is a small ga s-filled duodenal diverticulum. The appendix is not visualized; however there is no discrete right lo wer quadrant fluid or fat stranding to suggest acute appendicitis. There are scattered sigmoid divert icula. No evidence for diverticulitis. No free fluid or air. Nodes and vessels: No retroperitoneal or mesenteric adenopathy by size criteria. Aorta and inferior vena cava are normal in size. There are scattered atheromatous calcifications throughout the aorta and iliac arteries bilaterally. Miscellaneous: No ventral hernias. PELVIS: Genitourinary: Bladder wall thickness is normal. As before, a dense calcification is present in the perineal region. It appears to be adjacent to the vagina or urethra. This is unchanged from multiple prior studies. Miscellaneous: No inguinal hernias or adenopathy. Bones: No suspicious bony lesions. No vertebral body compression fractures. IMPRESSION: 1. No acute intra-abdominal findings. The appendix is not visualized; however there no ancillary find ings to suggest acute appendicitis. Has the patient undergone appendectomy? 2. Diverticulosis. No acute diverticulitis. Dictated by: Quynh Thomas M.D. on 11/30/2016 at 19:25 Approved by: Quynh Thomas M.D. on 11/30/2016 at 19:35
[2016-11-30] MEDS ORDERED: cefTRIAXone Inj 2,000 MG in Dextrose 5% Minibag Plus 50 ML IV ONE (19:40)
[2016-11-30 19:58] VITALS: BP 114/57; PULSE 90; RESP 18; O2SAT 97
[2016-11-30] MEDS ORDERED: FLUO20CA25 PO (20:28)
[2016-11-30] MEDS ORDERED: ARMO150T6 PO (20:28)
[2016-11-30] MEDS ORDERED: ALBU8.5H2 INHALATION (20:28)
[2016-11-30] MEDS ORDERED: PRAV40TA PO (20:29)
[2016-11-30] MEDS ORDERED: FUR20 PO (20:44)
[2016-11-30] MEDS ORDERED: BETA15CR3 TP (20:44)
[2016-11-30] MEDS ORDERED: DIPH25CA6 PO (20:48)
[2016-11-30] MEDS ORDERED: FURO40TA4 PO (20:50)
[2016-11-30 21:45] VITALS: BP 131/60; PULSE 85; RESP 20; O2SAT 93
[2016-11-30] MEDS ORDERED: Polyethylene Glycol (PEG) 17 Gm Powder PO PRN (21:55)
[2016-11-30] MEDS ORDERED: Alum-Mag Hydrox-Simeth 30 mL Suspension PO PRN (21:55)
[2016-11-30 22:20] VITALS: BP 116/71; PULSE 82; RESP 20; O2SAT 93
[2016-11-30] MEDS ORDERED: Glucose 40% Oral Gel 15 Gm Tube PO PRN (22:20)
[2016-11-30] MEDS ORDERED: Insulin GLARgine 100 Unit/mL Syringe SUBQ ONE (22:20)
--- NOTE | 2016-11-30 22:30 | PCM.HPMED ---
Subjective Date of Service Nov 30, 2016 Primary Provider: Admitting Physician: Carina Roland DO Primary Care Physician: Jorge A Cordero MD Attending Physician: Carina Roland DO Admit Status: From the Emergency Department, Remote Telemetry Chief Complaint: Abdominal pain History of Present Illness: Ms. Gabriela Bennett is a 76 year old woman with a history of recent hospitalization at [facility] for intracranial hemorrhage sustained from GLF, atrial fibrillation without current anticoagulation secondary to fall risk and recent intracranial hemorrhage, cardiomyopathy status post pacer placement, recurrent UTI, CAD, PVD with claudication, and insulin using DM2, that presented to [facility] 11/30/2016 with acute onset, diffuse abdominal pain and constipation, with associated nausea. She was admitted for evaluation and treatment of suspected UTI, acute kidney injury, and elevated lactic acid. Hospital day 1. Patient states that today she was at her local [employer], and she was getting out of the car approaching the retail store, and she developed acute onset of dull and sharp diffuse abdominal pain with associated nausea. She immediately proceeded to the restroom, where she states she remained for over one hour attempting to pass a bowel movement. She notes that management contacted EMS for further evaluation, as the patient states she was calling for help secondary to her pain. She states that she did not visualize her bowel movement when it had passed, but she states that EMS reported it as "rather large." She is uncertain if there is any associated blood, mucus, or any other abnormal finding, but she was not informed of any abnormal findings. At this time, she denies any fever, chills, nausea, vomiting, recurrence of abdominal pain, any other bowel movements, dysuria, hematuria, shortness of breath, palpitations, or headache. At this time, she has no complaints. She states that these episodes of acute onset diffuse abdominal pain occur approximately every month, she cannot identify any triggers prior to the onset. She also notes a history of increase in frequency of ground-level falls, notably a recent admission to [facility] for intracranial bleed secondary to a ground-level fall from her power chair. At that time, she was on anticoagulation for atrial fibrillation, which has now been stopped. She states she has been falling more frequently, utilizes a walker and power chair at baseline, denies any associated syncope, loss of consciousness, palpitations, shortness of breath, or any preceding dizziness prior to her falls. She is uncertain why she has been falling recently. Recent PCP visit 11/21/2016 noted that ramipril, oxybutynin, and warfarin were all discontinued secondary to recent intracranial hemorrhage, dizziness, and increased ground-level falls. In the ED, temperature 36.9, pulse 86, respiratory rate 19, blood pressure 108/ 66, 90% on room air; initial labs revealed sodium 135, potassium 4.7, creatinine 1.35, glucose 365, lactic acid 2.4, lipase 28, LFTs within range; UA revealed positive nitrites, negative leukocyte esterase, moderate epithelial cells with many bacteria; coag studies INR 1.02; CT abdomen and pelvis with contrast revealed no acute intra-abdominal findings, and the presence of diverticulosis without acute diverticulitis; CXR did not reveal any acute cardiopulmonary findings. Initial therapies included ceftriaxone. Blood cultures and urine cultures obtained. Patient was transferred to floor in stable condition. Review of Systems: Complete ROS obtained, pertinent positives and negatives as noted in history of present illness Allergies Coded Allergies: Sulfa (Sulfonamide Antibiotics) (Verified Allergy, Severe, WELTS? STATES STILL HAS BIRTHMARKS FROM THIS, 11/30/16) Penicillins (Verified Allergy, Intermediate, Rash,Itching,, 11/30/16) TAPE (Verified Allergy, Unknown, Fragile skin, 11/18/16) meperidine (Verified Adverse Reaction, Severe, Nausea,Vomiting, Violently Ill, 11/30/16) azithromycin (Verified Adverse Reaction, Intermediate, PAIN, CALLED PARAMEDICS, 11/30/16) Home Medications Gabriela Bennett. [id number] 11/21/2016 11:00 AM 06/02 Start Date Medication Directions Stop Date 11/21/2016 Aspirin Low Dose 81 mg tablet,delayed release take 1 tablet by oral route every day 10/03/2016 carvedilol 6.25 mg tablet TAKE 0.5 TABLET [3.125 mg] BY MOUTH TWICE A DAY WITH FOOD 08/22/2016 clotrimazole 1 % topical cream apply by topical route 2 times every day to the affected and surrounding areas of skin in the morning and evening 07/23/2016 Durable Medical Equipment 4 wheel walker with seat and brakes. 10/29/2016 Flovent Diskus 100 mcg/actuation powder for inhalation inhale 1 puff by inhalation route 2 times every day 07/02/2016 fluoxetine 20 mg tablet take 2 tablet by oral route every day in the morning for mood 11/21/2016 furosemide 40 mg tablet take 0.5 tablet (20MG) by oral route every other day as needed 06/03/2016 Lantus 100 unit/mL subcutaneous solution inject 45 Units by subcutaneous route every bedtime as per insulin protocol 12/07/2013 Lotemax 0.5 % eye drops,suspension instill 1 drop by ophthalmic route every day into affected eye(s) 11/05/2016 Novolog 100 unit/mL subcutaneous solution sliding scale with each meal. 10/17/2016 Nuvigil 150 mg tablet take 1 tablet by oral route every day in the morning 01/18/2016 omeprazole 20 mg capsule,delayed release take 1 capsule by oral route every day before a meal for acid reflux. 03/14/2015 Oxygen 2 liter Nasal use 2 L by NC at night. 09/16/2016 pravastatin 40 mg tablet TAKE ONE TABLET BY MOUTH ONCE DAILY for high cholesterol. 10/07/2016 Suprep Bowel Prep Kit 17.5 gram-3.13 gram-1.6 gram oral solution take as directed by Oral route 09/19/2014 triamcinolone acetonide 0.1 % topical cream apply by topical route 2 times every day a thin layer to the affected area(s) 03/31/2015 Truetest Test Strips test blood sugars 3 times every day for diabetes. 07/28/2016 VENLAFAXINE CAP 150MG ER CAPSULE TAKE ONE CAPSULE BY MOUTH ONCE DAILY FOR MOOD PMH History of gastric AVM seen on EGD 02/02/13 History of ascending colonic sessile serrated polyp, benign pathology Diabetes mellitus, type 2, insulin using, with peripheral neuropathy CAD status post stent placement Chronic gastritis CVA with residual left sided weakness Atrial fibrillation on coumadin Hypertension Narcolepsy [place] COPD Depression Anxiety Asthma GERD Surgical History Rhinoplasty Tracheotomy Cholecystectomy Mastectomy Pacer placement Hysterectomy Left corneal transplant Appendectomy Family History Father: Currently , secondary to airplane accident Mother: , secondary to myocardial infarction, stomach problems also reported Brother: History of alcoholism and dementia Children: One son alive; daughter secondary to drug overdose Social History Hx Alcohol Use: No 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 Quit June 2016) Smoking Status: Former Smoker Exam Vital Signs Vital Sign - Last Date Time Temp Pulse Resp B/P Pulse Ox O2 Delivery O2 Flow Rate FiO2 11/30/16 21:45 36.4 85 20 131/60 93 Room Air 11/30/16 17:36 2 Exam General: Obese female in no acute distress HEENT: Atraumatic, normocephalic, sclera anicteric, membranes moist; small healed abrasion noted at hairline above left eye Cardiac: Regular rate and rhythm at time of examination, no murmurs appreciated Respiratory: Adequate airflow all andrade, no wheeze or coarse sounds appreciated Abdomen: Obese, linear vertical scar noted over abdomen well-healed, no tenderness to palpation Extremities: Mild pitting edema noted bilaterally lower extremities from dorsum to lower leg without evidence of erythema; upper extremities exhibit bilateral ecchymoses without active bleeding MSK: 5 out of 5 all 4 extremities Skin: Warm and dry Neuro: Cranial nerves II through XII grossly intact, speech without slurring, facial expressions equal and symmetric Psych: Appropriate mood, affect, and responses to questioning; good insight and judgment Lab and Diagnostics Result Diagram: 11/30/16 1725 11/30/16 172 Assessment & Plan Ms. Gabriela Bennett is a 76 year old woman with a history of recent hospitalization at [facility] for intracranial hemorrhage sustained from GLF, atrial fibrillation without current anticoagulation secondary to fall risk and recent intracranial hemorrhage, cardiomyopathy status post pacer placement, recurrent UTI, CAD, PVD with claudication, and insulin using DM2, that presented to [facility] 11/30/2016 with acute onset, diffuse abdominal pain and constipation, with associated nausea. She was admitted for evaluation and treatment of suspected UTI, acute kidney injury, and elevated lactic acid. Hospital day 1. Abdominal pain, acute, present on admission. Currently resolved - Pain may have been secondary to underlying urinary tract infection, constipation, gas distention - CT abdomen and pelvis with contrast 11/30/2016: No acute intra-abdominal findings, presence of diverticulosis without acute diverticulitis - At time of evaluation, patient stated abdominal pain had resolved - Will keep NPO overnight; slowly assess diet and morning - Encourage bowel regimen Elevated lactic acid, acute, present on admission. Under evaluation - On admit: Lactic acid 2.4 - Monitor/trend Leukocytosis, acute, present on admission. Under evaluation - On admit: 12.3 - Treat underlying cause: Likely secondary to UTI; await pending blood/urine cultures Suspected UTI, acute, present on admission. Under evaluation - On admit: WBC 12.3 - UA on admit: Positive nitrates, negative esterase, moderate epithelial with many bacteria - H/o urinary retention, previously on oxybutyin, stopped secondary to increase GLF/reported dizziness - Await culture results - Continue ceftriaxone at this time Recurrent ground-level falls, chronicity unknown. Presumed unstable - DDx: deconditioning, recurrent infections, sequelae of previous CVAs, dysrhythmias, gait instability - PT evaluation - Telemetry - Labs: TSH/fT4, electrolytes - Orthostatics in am Acute kidney injury, present on admission. Under evaluation - Admit: Creatinine 1.35; previous value noted 11/18/2016 was 0.95; history of elevations noted in chart - Likely secondary to dehydration as patient has been nothing by mouth for GI evaluation for etiology of abdominal pain - IV fluids, NS 100 - Home lasix held at this time; re-initiate based on am labs - Monitor Atrial fibrillation not on anticoagulation therapy secondary to intracranial hemorrhage and fall risk, chronic. Presumed stable - Resume home meds when med rec completed - Resume ASA 81mg - Tele Chronic respiratory failure. Presumed stable - Reports 2 L nightly; continue Diabetes mellitus type II, insulin-dependent, chronic. Presumed stable - A1c August 2016: 8.0 - Home meds: Lantus 45 units nightly, NovoLog 10 units with each meal, plus correctional scale - 35 units Lantus given night of admission, correctional scale in place - Adjust insulin as needed Cardiomyopathy status post pacer placement, chronic. Presumed stable - Echo in [employer] dated 2011 notes type I diastolic dysfunction HTN, chronic. Presumed stable - Resume home meds when med rec completed: Carvedilol 3.125 twice daily Narcolepsy, chronic. Presumed stable - Resume appropriate home meds: Nuvigil 150 mg daily CAD s/p stent placement, chronic. Presumed stable - Cardiac meds as noted above, in addition to statin therapy - PRN: Bowel/pain/nausea/fever - DVT: SCDs only; recent intracranial hemorrhage - Diet: Diabetic/Heart healthy in am - IVF: NS 100 - GI: Home PPI - Code: FULL CODE Patient status: Due to presenting symptoms, risk of adverse events, and anticipated course of care, likely length of stay exceeds two midnights; patient admitted as inpatient status Pain Evaluation: Adequate Pain Control GI Prophylaxis: Proton Pump Inhibitor VTE Prophylaxis: SCDs Resuscitation Status: CPR: Attempt Resuscitation Attending Statement The patient was seen and examined together with house staff on 11/30/16 and I agree with the history, exam and plan as outlined in the note above. Teresa Dsouza DO Nov 30, 2016 22:30 Carina Roland DO Dec 01, 2016 04:07
[2016-11-30] MEDS: 0.9% Sodium Chloride 1,000 ML IV SCH (23:25)
[2016-12-01] VITALS (7 sets, daily range): BP systolic 114–130; BP diastolic 69–89; PULSE 74–95; RESP 18–21; O2SAT 90–94
--- NOTE | 2016-12-01 01:06 | NUR ---
Admit to room 3023 @ 2215 with UTI/ABD pain. A&Ox3, oriented to room and poc on whiteboard. SCD's on and non-slip socks for safety. VSS sat's 94% on RA 116/71 BP. No c/o pain/nausea at this time.
--- NOTE | 2016-12-01 01:12 | NUR ---
Med Rec completed by Pharmacist Jamison in ED.
[2016-12-01] MEDS: Venlafaxine XR 75 mg ER24 Capsule PO SCH ×2 (05:12→09:04)
[2016-12-01 06:02] LABS: BASOPHILS % (AUTO) 0.1 % (0-3); EOSINOPHILS % (AUTO) 3.7 % (0-5); MONOCYTES % (AUTO) 8.3 % (4-12); Mean Corpuscular Hemoglobin 30.5 pg (27.0-35.0); Mean Corpuscular Volume 92.3 fL (81-100); Platelet Count 149 bil/L (150-400)
[2016-12-01 06:38] LABS: Magnesium 1.6 mg/dL (1.6-2.6); Phosphorus 3.1 mg/dL (2.5-4.9)
--- NOTE | 2016-12-01 06:47 | NUR ---
NOC Assume care around 0400 from Cachorro Zapata RN. Pt denies chest pain, sob, n/v or abd discomfort. Pt denies abd pain upon deep palpation. IVF running as ordered, Has been pleasant and cooperative with care.
[2016-12-01] MEDS: Insulin LISPRO 300 Unit/3 mL Inj SUBQ SCH ×4 (07:44→21:28)
[2016-12-01] MEDS: ARMODAFINIL 150 MG PO SCH (08:30)
[2016-12-01] MEDS: Pantoprazole 40 mg ER24 Tablet PO SCH (09:04)
[2016-12-01] MEDS: 0.9% Sodium Chloride 1,000 ML IV SCH ×2 (09:05→17:26)
--- NOTE | 2016-12-01 10:48 | PCM.PNMED ---
Subjective Date of Service Dec 01, 2016 Subjective No further abdominal pain. Feels back to her usual self. Has been up to the bathroom with no lightheadedness. Exam Vital Signs Vital Sign - Last Date Time Temp Pulse Resp B/P Pulse Ox O2 Delivery O2 Flow Rate FiO2 12/01/16 09:22 36.8 85 21 122/77 94 Room Air 11/30/16 17:36 2 Intake and Output 11/30/16 11/30/16 12/01/16 Cumulative From/Thru 15:00 23:00 07:00 11/30/16 16:47 - 12/01/16 06:55 Intake Total 999 ml 762 ml 1761 ml Output Total 0 ml 0 ml Balance 999 ml 762 ml 1761 ml Intake Oral 100 ml 100 ml IV Total 999 ml 662 ml 1661 ml Output Urine Total 0 ml 0 ml # Bowel Movements 0 0 Exam General: Alert and oriented, no acute distress Heart: Regular Lungs: Clear Abdomen: Soft, non-tender Extremities: No pedal edema IVs and Medications Medications Reviewed: Medications were reviewed in detail Lab and Diagnostics Result Diagram: 12/01/16 0515 12/01/16 0515 Assessment & Plan Ms. Gabriela Bennett is a 76 year old woman with a history of recent hospitalization at [facility] for intracranial hemorrhage sustained from GLF, atrial fibrillation without current anticoagulation secondary to fall risk and recent intracranial hemorrhage, cardiomyopathy status post pacer placement, recurrent UTI, CAD, PVD with claudication, and insulin using DM2, that presented to [facility] 11/30/2016 with acute onset, diffuse abdominal pain and constipation, with associated nausea. She was admitted for evaluation and treatment of suspected UTI, acute kidney injury, and elevated lactic acid. Abdominal pain, acute, present on admission. Currently resolved - Pain may have been secondary to underlying urinary tract infection, constipation, gas distention - CT abdomen and pelvis with contrast 11/30/2016: No acute intra-abdominal findings, presence of diverticulosis without acute diverticulitis - At time of admission, patient stated abdominal pain had resolved and has not recurred - Encourage bowel regimen UTI, acute, present on admission - On admit: WBC 12.3, now 7.5 - UA on admit: Positive nitrates, negative esterase, moderate epithelial with many bacteria - Urine cult w >100,000 GNB, await ID and sens - blood cult x 2 "pending" - H/o urinary retention, previously on oxybutyin, stopped secondary to increase GLF/reported dizziness - Continue ceftriaxone Elevated lactic acid, acute, present on admission. Resolved. - On admit: Lactic acid 2.4, this am 1.1 Leukocytosis, acute, present on admission. - On admit: 12.3, now 7.5 - Treating underlying cause: Likely secondary to UTI Recurrent ground-level falls, chronicity unknown. Presumed unstable - DDx: deconditioning, recurrent infections, sequelae of previous CVAs, dysrhythmias, gait instability - PT evaluation - Telemetry - Labs: TSH/fT4, electrolytes - Orthostatics in am Acute kidney injury, present on admission. - Admit: Creatinine 1.35; previous value noted 11/18/2016 was 0.95; history of elevations noted in chart - Likely secondary to dehydration as patient has been nothing by mouth for GI evaluation for etiology of abdominal pain - creatinine this am 1.19 - cont IV fluids, NS 100 - will continue to hold Home lasix - repeat labs in am Atrial fibrillation not on anticoagulation therapy secondary to intracranial hemorrhage and fall risk, chronic. Presumed stable - Continue home meds including ASA 81mg - Tele shows paced rhythm, rate 70s-80s, will DC tele Chronic respiratory failure. Presumed stable - Reports 2 L nightly; continue Diabetes mellitus type II, insulin-dependent, chronic. Presumed stable - A1c August 2016: 8.0 - Home meds: Lantus 45 units nightly, NovoLog 10 units with each meal, plus correctional scale - 35 units Lantus given night of admission, will continue at this lower dose, correctional scale in place - Adjust insulin as needed Cardiomyopathy status post pacer placement, chronic. Presumed stable - Echo in [employer] dated 2011 notes type I diastolic dysfunction HTN, chronic. Presumed stable - Continue Carvedilol 3.125 twice daily Narcolepsy, chronic. Presumed stable - Continue Nuvigil 150 mg daily CAD s/p stent placement, chronic. Presumed stable - Cardiac meds as noted above, in addition to statin therapy - PRN: Bowel/pain/nausea/fever - DVT: SCDs only; recent intracranial hemorrhage - Diet: Diabetic/Heart healthy - IVF: NS 100 - GI: Home PPI - Code: FULL CODE Patient disposition: Hopefully home tomorrow once have urine culture results GI Prophylaxis: Proton Pump Inhibitor VTE Prophylaxis: SCDs VTE Mechanical Devices: Intermittant Pneumatic CD Resuscitation Status: CPR: Attempt Resuscitation Liz Colunga MD Dec 01, 2016 10:48 Liz Colunga MD Dec 01, 2016 10:48 Liz Colunga MD Dec 01, 2016 10:48
--- NOTE | 2016-12-01 14:01 | NUR ---
SUSAN signed, IP from day of admit.
[2016-12-01] MEDS ORDERED: cefTRIAXone Inj 1,000 MG in Dextrose 5% Minibag Plus 50 ML IV SCH (17:00)
[2016-12-01] MEDS ORDERED: Insulin GLARgine 100 Unit/mL Syringe SUBQ SCH ×2 (21:00)
[2016-12-02] MEDS: 0.9% Sodium Chloride 1,000 ML IV SCH (03:08)
[2016-12-02 06:12] VITALS: BP 147/85; PULSE 80; RESP 20; O2SAT 91
[2016-12-02 06:17] LABS: Mean Corpuscular Volume 90.2 fL (81-100)
[2016-12-02] MEDS: ARMODAFINIL 150 MG PO SCH (08:05)
[2016-12-02] MEDS: Insulin LISPRO 300 Unit/3 mL Inj SUBQ SCH ×2 (08:09→11:16)
[2016-12-02] MEDS: Venlafaxine XR 75 mg ER24 Capsule PO SCH (08:10)
[2016-12-02] MEDS: Pantoprazole 40 mg ER24 Tablet PO SCH (08:10)
--- NOTE | 2016-12-02 11:07 | NUR ---
Social Work-multidisciplinary note: SW updated by MD in morning rounds that pt may be ready to discharge later today. Pt to be switched to PO abx. SW has not completed assessment, SW to see pt today. INGRID Paul
--- NOTE | 2016-12-02 11:09 | NUR ---
Social Work-initial assessment/readiness for discharge: Data:see initial assessment. Pt is a 76 y/o female who was admitted on 11/30/16 for UTI per H&P. Pt's insurance is [facility] and [facility] [employer] and PCP is Jorge A Cordero MD. EMR Reviewed. SW met with pt at bedside, SW role explained. Pt is alert and oriented x3. Pt resides at home alone in a ground level apartment where she remains independent with ADLs. Pt uses either a fww or powerchair at baseline and does not drive. Pt has no HH or SNF history. Pt has no halfway care insurance or VA benefits. SW discussed DPOA/advanced directive, pt confirms she has not completed this, but has the paperwork. Pt has SUE caregivers 5 days a week and her CM is Milly Garza, updated clinicals have been faxed. Pt confirms that she has been up in the room, independently. MD anticipates pt to return home on PO abx. Pt states she typically uses [employer] taxi for transport home. SW confirmed pt did arrive via ambulance. SW to arrange this at discharge. SW provided pt with discharge planning checklist and encouraged her to call with any questions. SW provided phone number and plan on white board in room. SW will continue to follow. Assessment:pt who has SUE at home. Plan:Pt to discharge home when medically stable via POV. Pt to continue with SUE at home. SW will continue to follow. INGRID Paul Addendum: 12/02/16 at 1114 by AMY MCCURDY Amended: Links added.
[2016-12-02] MEDS ORDERED: CEFD300C3 PO (11:35)
--- NOTE | 2016-12-02 11:42 | PCM.DIMED ---
Discharge Instructions Date of Service Dec 02, 2016 Dates of Hospitalization Nov 30, 2016 at 20:13 Discharge Diagnosis Discharge Diagnosis # Acute abdominal pain, present on admission. Resolved. - Pain may have been secondary to underlying urinary tract infection, constipation, gas distention # Acute E. Coli urinary tract infection (UTI), present on admission # Elevated lactic acid, acute, present on admission. Resolved. # Acute Leukocytosis, present on admission. Resolved. # History of recurrent ground-level falls. # Acute kidney injury, present on admission. Resolved. # Chronic atrial fibrillation not on anticoagulation therapy secondary to intracranial hemorrhage and fall risk. Presumed stable # Chronic respiratory failure. Presumed stable # Diabetes mellitus type II, insulin-dependent, chronic. Presumed stable # Cardiomyopathy status post pacer placement, chronic. Presumed stable # Chronic hypertension. Stable. # Narcolepsy, chronic. Presumed stable # Chronic coronary artery disease (CAD) post stent placement. Presumed stable Diet Discharge Diet: Low fat, Low Sodium, Heart Healthy, Diabetic Activity Discharge Activity: Home Health Phyical Therapy (as needed) Call your provider Call your provider for: Fever or Chills, Shortness of breath, Bleeding, Chest pain, Vomitting, Excessive diarrhea Patient Instructions Patient Instructions Seek immediate medical attention if any new or worsening signs or symptoms occur. Follow-up plan 1. Followup with primary care provider (Dr. Cordero) in 3-5 days Follow-up Provider: Jorge A Cordero MD, Masoud Dec 02, 2016 11:42
--- NOTE | 2016-12-02 13:01 | NUR ---
Social Work-discharge: Data:EMR reviewed. Pt is on day 2 of hospitalization for UTI per H&P. Pt is medically stable for discharge. Pt has SUE caregivers to be continued at home. Pt did arrive via ambulance and does need ride home. [facility] Rn and pt updated and agreeable to plan. Assessment:Pt who would has caregivers at home. Plan:Pt to discharge home today via Medicaid transport at 1400. Pt to continue with SUE at home. Rn and pt updated and agreeable to plan. INGRID Paul
--- NOTE | 2016-12-02 14:12 | NUR ---
Discharge: Patient discharged to home at approx 1410. IV d/c'd intact. Personal belongings sent home with patient. Reviewed new prescription, home medication list, discharge instructions and follow up appointments. Stressed importance of getting antibiotic prescription filled, start tonight and complete the whole course. Verbalized understanding. Escorted to main entrance via wheelchair accompanied by volunteer for taxi pickup. No apparent distress noted at time of discharge.
--- NOTE | 2016-12-02 14:59 | NUR ---
Evaluation completed. Please go to "Notes" then click on "Assessments and Notes" (bottom left corner of screen). Then select appropriate discipline tab on top of screen.
--- NOTE | 2016-12-02 18:16 | PCM.DC.MED ---
Discharge Summary Date of Service Dec 02, 2016 Dates of Hospitalization Date of Hospital Admission Nov 30, 2016 at 20:13 Date of Discharge: Dec 02, 2016 Providers: Admitting Physician: Carina Roland DO Primary Care Physician: Jorge A Cordero MD Attending Physician: Warner Mendieta Diagnosis at Time of Discharge Diagnosis at Time of Discharge # Acute abdominal pain, present on admission. Resolved. - Pain may have been secondary to underlying urinary tract infection, constipation, gas distention # Acute E. Coli urinary tract infection (UTI), present on admission # Elevated lactic acid, acute, present on admission. Resolved. # Acute Leukocytosis, present on admission. Resolved. # History of recurrent ground-level falls. # Acute kidney injury, present on admission. Resolved. # Chronic atrial fibrillation not on anticoagulation therapy secondary to intracranial hemorrhage and fall risk. Presumed stable # Chronic respiratory failure. Presumed stable # Diabetes mellitus type II, insulin-dependent, chronic. Presumed stable # Cardiomyopathy status post pacer placement, chronic. Presumed stable # Chronic hypertension. Stable. # Narcolepsy, chronic. Presumed stable # Chronic coronary artery disease (CAD) post stent placement. Presumed stable Procedures XRay, CTs & MRIs Date of Service: 11/30/16 1704 PROCEDURE: CT ABDOMEN AND PELVIS WITH CONTRAST ([id number]) IMPRESSION: 1. No acute intra-abdominal findings. The appendix is not visualized; however there no ancillary findings to suggest acute appendicitis. Has the patient undergone appendectomy? 2. Diverticulosis. No acute diverticulitis. Dictated by: Quynh Thomas M.D. on 11/30/2016 at 19:25 Approved by: Quynh Thomas M.D. on 11/30/2016 at 19:35 Date of Service: 11/30/16 1734 PROCEDURE: X-RAY CHEST ONE VIEW, PORTABLE ([id number]) IMPRESSION: No acute cardiopulmonary findings. Dictated by: Quynh Thomas M.D. on 11/30/2016 at 18:05 Approved by: Quynh Thomas M.D. on 11/30/2016 at 18:06 Brief History As noted in H&P by Dr. Dsouza: Ms. Gabriela Bennett is a 76 year old woman with a history of recent hospitalization at [facility] for intracranial hemorrhage sustained from GLF, atrial fibrillation without current anticoagulation secondary to fall risk and recent intracranial hemorrhage, cardiomyopathy status post pacer placement, recurrent UTI, CAD, PVD with claudication, and insulin using DM2, that presented to [facility] 11/30/2016 with acute onset, diffuse abdominal pain and constipation, with associated nausea. She was admitted for evaluation and treatment of suspected UTI, acute kidney injury, and elevated lactic acid. Hospital day 1. Patient states that today she was at her local [employer], and she was getting out of the car approaching the retail store, and she developed acute onset of dull and sharp diffuse abdominal pain with associated nausea. She immediately proceeded to the restroom, where she states she remained for over one hour attempting to pass a bowel movement. She notes that management contacted EMS for further evaluation, as the patient states she was calling for help secondary to her pain. She states that she did not visualize her bowel movement when it had passed, but she states that EMS reported it as "rather large." She is uncertain if there is any associated blood, mucus, or any other abnormal finding, but she was not informed of any abnormal findings. At this time, she denies any fever, chills, nausea, vomiting, recurrence of abdominal pain, any other bowel movements, dysuria, hematuria, shortness of breath, palpitations, or headache. At this time, she has no complaints. She states that these episodes of acute onset diffuse abdominal pain occur approximately every month, she cannot identify any triggers prior to the onset. She also notes a history of increase in frequency of ground-level falls, notably a recent admission to [facility] for intracranial bleed secondary to a ground-level fall from her power chair. At that time, she was on anticoagulation for atrial fibrillation, which has now been stopped. She states she has been falling more frequently, utilizes a walker and power chair at baseline, denies any associated syncope, loss of consciousness, palpitations, shortness of breath, or any preceding dizziness prior to her falls. She is uncertain why she has been falling recently. Recent PCP visit 11/21/2016 noted that ramipril, oxybutynin, and warfarin were all discontinued secondary to recent intracranial hemorrhage, dizziness, and increased ground-level falls. In the ED, temperature 36.9, pulse 86, respiratory rate 19, blood pressure 108/ 66, 90% on room air; initial labs revealed sodium 135, potassium 4.7, creatinine 1.35, glucose 365, lactic acid 2.4, lipase 28, LFTs within range; UA revealed positive nitrites, negative leukocyte esterase, moderate epithelial cells with many bacteria; coag studies INR 1.02; CT abdomen and pelvis with contrast revealed no acute intra-abdominal findings, and the presence of diverticulosis without acute diverticulitis; CXR did not reveal any acute cardiopulmonary findings. Initial therapies included ceftriaxone. Blood cultures and urine cultures obtained. Patient was transferred to floor in stable condition. Hospital Course # Abdominal pain, acute, present on admission. Currently resolved - Pain may have been secondary to underlying urinary tract infection, constipation, gas distention - CT abdomen and pelvis with contrast 11/30/2016: No acute intra-abdominal findings, presence of diverticulosis without acute diverticulitis - At time of admission, patient stated abdominal pain had resolved and has not recurred - Encourage bowel regimen # UTI, acute, present on admission - UA on admit: Positive nitrates, negative esterase, moderate epithelial with many bacteria - Urine cult growing E. Coli - H/o urinary retention, previously on oxybutyin, stopped secondary to increase GLF/reported dizziness - Continue IC Ceftriaxone during this hospitalization. Will d/c home on 5 more days or oral Abx to finish 7 day course # Elevated lactic acid, acute, present on admission. Resolved. # Leukocytosis, acute, present on admission. - Resolved - Likely secondary to UTI # Recurrent ground-level falls, chronicity unknown. Presumed unstable - DDx: deconditioning, recurrent infections, sequelae of previous CVAs, dysrhythmias, gait instability - PT evaluation ordered but patient refusing and wants to go home # Acute kidney injury, present on admission. - Resolved # Atrial fibrillation not on anticoagulation therapy secondary to intracranial hemorrhage and fall risk, chronic. Presumed stable - Continue home meds including ASA 81mg # Chronic respiratory failure. Presumed stable - Reports 2 L nightly; continue # Diabetes mellitus type II, insulin-dependent, chronic. Presumed stable - A1c August 2016: 8.0 - Continue home meds on discharge # Cardiomyopathy status post pacer placement, chronic. Presumed stable # HTN, chronic. Presumed stable - Continue Carvedilol 3.125 twice daily # Narcolepsy, chronic. Presumed stable - Continue Nuvigil 150 mg daily # CAD s/p stent placement, chronic. Presumed stable - Cardiac meds as before Exam Vital Signs (Last) Date Time Temp Pulse Resp B/P Pulse Ox O2 Delivery O2 Flow Rate FiO2 12/02/16 06:12 37.0 80 20 147/85 91 Room Air 11/30/16 17:36 2 Exam CV: RRR Lungs: CTA bilat Abd: Soft, NT, ND, +BS Test 11/30/16 17:25 11/30/16 19:05 12/01/16 05:15 12/01/16 06:30 Prothrombin Time 10.9sec (8.1-12.5) Prothromb Time International Ratio 1.02ratio Lipase 28U/L (13-60) Urine Color Yellow (YELLOW) Urine Appearance Hazy (CLEAR,HAZY) Urine pH 5.0 (5.0-8.0) Urine Specific [place] 1.015 (1.003-1.035) Urine Protein Negativemg/dL (NEG,TRACE) Urine Glucose (UA) Negativemg/dL (NEGATIVE) Urine Ketones Negativemg/dL (NEGATIVE) Urine Occult Blood Negative (NEGATIVE) Urine Nitrite Positive (NEGATIVE) Urine Bilirubin Negative (NEGATIVE) Urine Urobilinogen Normalmg/dL (NORMAL) Urine Leukocyte Esterase Negative (NEGATIVE) Urine RBC 0-2/hpf (0-2) Urine WBC 0-5/hpf (0-5) Urine Epithelial Cells Moderate/hpf (NONE-MOD) Urine Crystals None seen (NONE SEEN) Urine Bacteria Many/hpf (NONE-FEW) Urine Hyaline Casts None/lpf (NONE) Urine Granular Casts None seen (NONE SEEN) Urine Waxy Casts None seen (NONE SEEN) Urine Red Blood Cell Casts None seen (NONE SEEN) Urine White Blood Cell Casts None seen (NONE SEEN) Urine Mucus None seen (None Seen) Urine Trichomonas None seen (NONE SEEN) Urine Yeast None (NONE SEEN) Urinalysis Comment None Urine Culture Reflexed Indicated Neutrophils (%) (Auto) 67.0% (40-74) Lymphocytes (%) (Auto) 20.8% (14-46) Monocytes (%) (Auto) 8.3% (4-12) Eosinophils (%) (Auto) 3.7% (0-5) Basophils (%) (Auto) 0.1% (0-3) Phosphorus Level 3.1mg/dL (2.5-4.9) Magnesium Level 1.6mg/dL (1.6-2.6) Total Bilirubin 0.2mg/dL (0.0-1.2) Aspartate Amino Transf (AST/SGOT) 25U/L (0-50) Alanine Aminotransferase (ALT/SGPT) 17U/L (0-32) Alkaline Phosphatase 127U/L (25-165) Total Protein 5.8g/dL (6.4-8.4) Albumin 3.2g/dL (3.4-5.0) Procalcitonin 0.04ng/mL (0.00-0.08) Thyroid Stimulating Hormone (TSH) 2.140uIU/mL (0.450-4.500) Free Thyroxine 0.60ng/dL (0.82-1.77) Lactic Acid Level 1.1mmol/L (0.4-2.0) Test 12/02/16 06:00 White Blood Count 7.6th/mm3 (3.8-10.1) Red Blood Count 3.97mil/mm3 (3.90-5.20) Hemoglobin 11.9g/dL (12.0-15.6) Hematocrit 35.8% (35.0-46.0) Mean Corpuscular Volume 90.2fL (81-100) Mean Corpuscular Hemoglobin 30.0pg (27.0-35.0) Mean Corpuscular Hemoglobin Concent 33.2% (32.0-37.0) Red Cell Distribution Width 13.0% (12.3-15.4) Platelet Count 171bil/L (150-400) Sodium Level 138mEq/L (134-144) Potassium Level 4.5mEq/L (3.5-5.2) Chloride Level 102mEq/L (97-108) Carbon Dioxide Level 23mmol/L (18-29) Blood Urea Nitrogen 16mg/dL (8-27) Creatinine 1.01mg/dL (0.57-1.00) Estimat Glomerular Filtration Rate 76mL/min (>59) Glucose Level 193mg/dL (60-99) Calcium Level 9.0mg/dL (8.5-10.1) Discharge Medications Discharge Medications Armodafinil (Armodafinil) 150 Mg Tablet 150 MG PO QAM (Reported) Carvedilol (Carvedilol) 6.25 Mg Tablet 3.125 MG PO BID (Reported) Cefdinir (Cefdinir) 300 Mg Capsule 300 MG PO BID Prescribed by: WARNER MENDIETA MD Fluoxetine (Fluoxetine) 20 Mg Capsule 40 MG PO QAM (Reported) Fluticasone Propionate (Flovent Diskus) 100 Mcg Disk.w.dev 1 PUFF INHALATION BID Prescribed by: FLACO OLVERA MD Furosemide (Furosemide) 40 Mg Tablet 20 MG PO QAM (Reported) Gabapentin (Neurontin) 300 Mg Capsule 300 MG PO HS Prescribed by: FLACO OLVERA MD Insulin Aspart (NovoLOG U-100 Pen) 100 Unit/Ml Insuln.pen 10-12 UNITS SUBQ BIDBL (Reported) use per sliding scale. TAKES BREAKFAST AND LUNCH PER PT. Insulin Glargine (Lantus U100 Insulin Vial) 100 Unit/Ml Vial 45 UNIT SUBQ HS ( Reported) Loteprednol Etabonate (Lotemax) 5 Ml Drops.susp 1 DROP LEFT_EYE TID (Reported) Pravastatin (Pravastatin) 40 Mg Tablet 40 MG PO HS (Reported) Venlafaxine ER (Effexor XR) 150 Mg Cap.er.24h 150 MG PO QAM (Reported) As needed Albuterol HFA (Proair HFA) 8.5 Gm Hfa.aer.ad 2 PUFFS INHALATION Q4H PRN PRN For Shortness of Breath (Reported) Betamethasone Dipropionate (Betamethasone Dipropionate) 15 Gm Cream..g. 1 APPLIC TP BID PRN PRN RASH (Reported) diphenhydrAMINE HCl (Benadryl) 25 Mg Capsule 25 MG PO HS PRN PRN For Itching ( Reported) Followup Plan Disposition: Home Follow-up plan 1. Followup with primary care provider (Dr. Cordero) in 3-5 days Discharge Diet: Low fat, Low Sodium, Heart Healthy, Diabetic Discharge Activity: Home Health Phyical Therapy (as needed) Patient Instructions Seek immediate medical attention if any new or worsening signs or symptoms occur. Follow-up Provider: Jorge A Cordero MD Time spent 35 min copies to: Jorge A Cordero MD, Masoud Dec 02, 2016 18:16
[2016-12-11] MEDS ORDERED: FOSF3PAC PO (08:54)
[2016-12-11] MEDS ORDERED: SENN-133 PO (08:54)
[2016-12-11] MEDS ORDERED: CHOL10008 PO (08:54)
[2016-12-11] MEDS ORDERED: PSYL3.4P5 PO (08:54)
[2016-12-11] MEDS ORDERED: OMEP20CA11 PO (08:54)
[2016-12-11] MEDS ORDERED: WARF5TAB7 PO (08:54)
[2016-12-11] MEDS ORDERED: OXYB5TAB10 PO (08:54)
[2016-12-11] MEDS ORDERED: CLOT45CR7 (08:54)
[2016-12-11] MEDS ORDERED: OXYB10TA PO (08:54)
[2016-12-11] MEDS ORDERED: ARMO150T5 PO (08:54)
[2016-12-11] MEDS ORDERED: VARE1TAB21 PO (08:54)
== END 2016-12-02 14:17 | disposition home or self-care (01) | DRG 683 ==
LOC: EDUNIT# 16:28 → SED 16:28 → EDBD 16:28 → MPC 20:13 → OBSVTOIN 20:13 → MPC 20:17
PROVIDERS: ADMIT Internal Medicine; ATTEND Internal Medicine
DX: N17.9 Acute kidney failure, unspecified (principal); N39.0 Urinary tract infection, site not specified; J96.10 Chronic respiratory failure, unspecified whether with hypoxia or hypercapnia; Z86.73 Personal history of transient ischemic attack (TIA), and cerebral infarction without residual deficits; Z79.4 Long term (current) use of insulin; Z79.01 Long term (current) use of anticoagulants; Z87.891 Personal history of nicotine dependence; Z86.010 Personal history of colon polyps; Z95.5 Presence of coronary angioplasty implant and graft; Z95.0 Presence of cardiac pacemaker; E11.9 Type 2 diabetes mellitus without complications; E86.0 Dehydration; R29.6 Repeated falls; I48.2 Chronic atrial fibrillation; I10 Essential (primary) hypertension; G47.419 Narcolepsy without cataplexy; I25.10 Atherosclerotic heart disease of native coronary artery without angina pectoris; B96.20 Unspecified Escherichia coli [E. coli] as the cause of diseases classified elsewhere

== ENCOUNTER → 2017-02-20 | Day surgery (SDC) | payer MEDICARE, MEDICAID ==
[~2017-02-20] VITALS: Ht 149.9 cm; Wt 80.0 kg
[~2017-02-20] MED LIST changes: +ALBU8.5H2 INHALATION; +ARMO150T5 PO; -ARMO250T4 PO; +BETA15CR3 TP; -CEFU500T61 PO; +CHOL10008 PO; +CLOT45CR7; -DOCU250C2 PO; +FLUO20CA25 PO; -FLUO40CA PO; +FOSF3PAC PO; +FURO40TA4 PO; +Insulin Human REGular-Omnicell 100 Unit/mL ONE; +Lactated Ringer's 1,000 ML IV ONE; +OXYB5TAB10 PO; +PSYL3.4P5 PO; +Propofol 10,000 mCg/mL 20 mL Inj ONE; +SENN-133 PO; +VARE1TAB21 PO; -ZYL100 PO
[2017-02-20 09:32] VITALS: BP 117/73; PULSE 102; RESP 18; O2SAT 94
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
[2017-02-20 11:41] VITALS: BP 120/77; PULSE 96; RESP 16; O2SAT 96
[2017-02-20 11:52] VITALS: BP 120/75; PULSE 97; RESP 16; O2SAT 95
[2017-02-20 11:57] VITALS: BP 118/64; PULSE 100; RESP 16; O2SAT 98
--- NOTE | 2017-02-20 12:41 | ENDO ---
[address] [address] ENDOSCOPY PROCEDURE PATIENT: CHUCK POP : 1940 MR#: [id number] ADMIT: 02/20/2017 JOB ID: [id number] PROCEDURE: Colonoscopy. INDICATION: Personal history of colon polyps. ANESTHESIA: Patient's ASA classification, Mallampati score, and medications as per anesthesia note. INSTRUMENT USED: PCF H 180 AL PREPARATION QUALITY: Fair. PROCEDURE DETAILS: After informed consent was obtained, the patient was brought into the GI suite, where he was placed on oxygen via nasal cannula and monitored with continuous pulse oximeter, telemetry, and blood pressure monitoring. A time-out was performed, then he was placed in the left lateral decubitus position and medications were administered for sedation. Digital rectal exam was performed, which was unremarkable. The colonoscope was then inserted into the rectum and advanced under direct visualization to the cecum, which was identified by the presence of the ileocecal valve and appendiceal orifice. Once the cecum was reached, the colonoscope was withdrawn back in the rectum as the mucosa and lumen were examined. In the rectum, retroflexion was performed. Following retroflexion, the remaining air in the rectum was suctioned and the procedure was completed. FINDINGS: 1. In the ascending colon there were four polyps ranging from diminutive to approximately 4 mm. They were removed with a combination of cold snare and cold biopsy forceps. 2. In the descending colon there was an approximately 4 mm polyp that was removed with a cold snare. 3. In the sigmoid colon, from approximately 25 cm extending distally to 20 cm, the mucosa was erythematous, with superficial ulceration. Multiple biopsies were obtained. 4. Scattered diverticula were seen throughout the left side of the colon. IMPRESSION: 1. Four ascending colon polyps. 2. Descending colon polyp. 3. Focal sigmoid colitis. 4. Left-sided diverticulosis. RECOMMENDATIONS: 1. Await polyp pathology results. 2. Follow up in GI Clinic in 2-4 weeks. COMPLICATIONS: None. ESTIMATED BLOOD LOSS: Less than 5 mL.
--- NOTE | 2017-02-20 15:19 | PCM.ANEP1 ---
Post Anesthesia PACU Phase 1 Assessment Vital Signs Vital Signs Date Time Temp Pulse Resp B/P Pulse Ox O2 Delivery O2 Flow Rate FiO2 02/20/17 11:57 100 16 118/64 98 Room Air 02/20/17 11:52 97 16 120/75 95 Room Air 02/20/17 11:41 36.3 96 16 120/77 96 Room Air 02/20/17 09:32 36.5 102 18 117/73 94 Room Air Anesthetic Administered: MAC Level of Alertness: Awake, talking Pain: No Nausea or Vomiting: No CV Function & Hydration Stable: Yes Airway Device: Oxygen Delivery: Room Air Lungs: Clear to Auscultation PACU Phase 2 Assessment Complications: No Follow up Care: N/A Patient Instructions Provided: N/A Gurwinder Petty MD Feb 20, 2017 15:19
--- NOTE | 2017-02-21 13:53 | PATH ---
SURGICAL PATHOLOGY Attending Physician:Adilene Álvarez CASE STATUS: Signed Out PATIENT NAME: CHUCK POP PID: [id number] : 1940 DATE COLLECTED:02/20/2017 19:54 SPECIMEN: 1: Colon, Polyp 2: Colon, Polyp 3: Colon, Biopsy CLINICAL HISTORY: 1). ASCENDING POLYPS 2). DESCENDING POLYP 3). SIGMOID ERYTHEMA BIOPSY FINAL DIAGNOSIS: 1. Ascending Colon Polyps, Biopsies: Tubular adenomata. 2. Descending Colon Polyp, Biopsy: Tubular adenoma. 3. Sigmoid Colon, Erythema, Biopsy: Colonic mucosa with mild active colitis. Negative for granulomata, dysplasia or malignancy. ICD10: D12.2 D12.4 NOTE: The findings in the sigmoid colon raise a differential diagnosis including infection, drug/toxin-induced injury and, in the appropriate clinical setting, idiopathic inflammatory bowel disease. GROSS DESCRIPTION: The specimen is received in three formalin filled containers labeled with the patient's name. 1). The specimen is labeled "ascending polyp" and consists of multiple portions of tissue which aggregate to 0.6 x 0.6 x 0.2 CM. The specimen is entirely submitted in cassette 1A. 2). The specimen is labeled "descending polyp" and consists of a 0.3 x 0.2 x 0.2 CM. The specimen is entirely submitted in cassette 2A. 3). The specimen is labeled "sigmoid erythema" and consists of 3 portions of tissue which aggregate to 0.4 x 0.2 x 0.2 CM. The specimen is entirely submitted in cassette 3A. 02/20/2017DC ICD-9 CODES: CPT CODES: 1: 65098 2: 80686 3: 06420 Electronically Signed Out Clay Rincon MD, Ph.D. [facility], [place] [address] Technical component performed at [facility], [facility] [address], [place], [address]
== END | disposition home or self-care (01) ==
LOC: END 09:07
PROVIDERS: ATTEND Internal Medicine Gastroenterology
DX: Z12.11 Encounter for screening for malignant neoplasm of colon (principal); Z86.010 Personal history of colon polyps; D12.2 Benign neoplasm of ascending colon; D12.4 Benign neoplasm of descending colon; K52.89 Other specified noninfective gastroenteritis and colitis; K57.30 Diverticulosis of large intestine without perforation or abscess without bleeding; K59.00 Constipation, unspecified; I10 Essential (primary) hypertension; I25.10 Atherosclerotic heart disease of native coronary artery without angina pectoris; I48.91 Unspecified atrial fibrillation; I25.5 Ischemic cardiomyopathy; E11.9 Type 2 diabetes mellitus without complications; F17.210 Nicotine dependence, cigarettes, uncomplicated; J44.9 Chronic obstructive pulmonary disease, unspecified; F32.9 Major depressive disorder, single episode, unspecified; Z86.73 Personal history of transient ischemic attack (TIA), and cerebral infarction without residual deficits; Z91.81 History of falling; Z87.440 Personal history of urinary (tract) infections; Z95.0 Presence of cardiac pacemaker; Z79.82 Long term (current) use of aspirin; Z79.4 Long term (current) use of insulin
CPT/HCPCS: 45380; 45385; 88305; J1815; J2704; J7120